=== PATIENT | male | born 1950 | race Caucasian/White ===

== ENCOUNTER 2021-04-06 11:08 | Outpatient (REF) | payer MEDICARE, SELFPAY ==
[2021-04-06 13:23] LABS: MANUAL DIFF FLAG NO
[2021-04-06 13:28] LABS: Basophils Absolute Auto 0.1 X10*3/uL (0.0-0.2); Eosinophils Absolute Auto 0.1 X10*3/uL (0.0-0.4); Eosinophils Percent Auto 2.5 % (0-4); Hematocrit 42.9 % (42-52); Hemoglobin 14.2 g/dl (14.0-18.0); Imm Gran Abs Auto 0.01 X10*3/uL (0.00-0.03); Imm Gran Pct Auto 0.2 % (0.0-0.4); Lymphocytes Absolute Auto 1.2 X10*3/uL (1.2-4.9); Lymphocytes Percent Auto 22.6 % (20-40); Mean Corpuscular HGB Conc 33.1 g/dl (31.0-36.0); Mean Corpuscular Hemoglobin 34.1 pg (27.0-33.0); Mean Corpuscular Volume 103.1 fL (80-98); Mean Platelet Volume 9.5 fL (9.4-12.4); Monocytes Absolute Auto 0.4 X10*3/uL (0.1-1.2); Monocytes Percent Auto 7.7 % (2-11); Neutrophils Absolute Auto 3.4 X10*3/uL (2.0-8.3); Platelet Count 250 X10*3/uL (160-400); Red Blood Count 4.16 X10*6/uL (4.60-5.80); Red Cell Distribution Width 12.8 % (11.0-16.0); White Blood Count 5.2 X10*3/uL (4.8-10.8)
[2021-04-06 13:55] LABS: Carbon Dioxide 27 mmol/L (22-29); Chloride 106 mmol/L (96-108); Potassium 4.4 mmol/L (3.3-5.1); Sodium 141 mmol/L (135-145)
[2021-04-06 13:56] LABS: Alanine Aminotransferase 52 U/L (0-40); Albumin Level 4.3 g/dL (3.5-5.0); Alkaline Phosphatase 68 U/L (39-117); Anion Gap 12 (12-20); Aspartate Amino Transferase 34 U/L (5-37); Blood Urea Nitrogen 23 mg/dL (9-16); Calcium 9.2 mg/dL (8.4-10.2); Cholesterol 186 mg/dL; Estimated Glomerular Filt Rate > 60; Glucose Random 82 mg/dL (60-115); HDL Cholesterol 69 mg/dL; LDL Cholesterol Calculated 105 mg/dl; Total Protein 6.5 g/dL (6.5-8.0); Triglycerides 63 mg/dL
[2021-04-06 14:17] LABS: Prostate Specific Antigen Scr 1.92 ng/mL (<0.05-4.0); TSH reflex Free T4 0.97 uIU/mL (0.32-4.0)
[2021-04-06 14:39] LABS: Erythrocyte Sedimentation Rate 3 MM/HR (0-15)
[2021-04-06 18:27] LABS: Glucose Urine UA NEG (NEG); Leukocyte Esterase Urine NEG (NEG); Nitrite Urine NEG (NEG); PH 5.5 (5.0-8.0); Specific Gravity - Urine 1.015 (1.005-1.025); Urine Blood NEG (NEG); Urine Ketones NEG (NEG); Urine Protein NEG (NEG-TRACE)
[2021-04-06 18:28] LABS: Appearance Urine CLEAR; Color Urine YELLOW
[2021-04-07 21:46] LABS: CRP High Sensitivity 0.8 mg/L
== END 2021-04-06 11:09 | disposition home or self-care (01) ==
LOC: HO.WFDLDS 11:08
PROVIDERS: Visit Provider Family Medicine
DX: Z00.00 Encounter for general adult medical examination without abnormal findings (principal); Z12.5 Encounter for screening for malignant neoplasm of prostate; M54.5 Low back pain
CPT/HCPCS: 36415; 80053; 80061; 81003; 84153; 84443; 85025; 85652; 86141

== ENCOUNTER 2021-04-08 13:33 | Outpatient (REF) | payer MEDICARE, SELFPAY ==
--- NOTE | ~2021-04-08 | XR_ITS ---
EXAMINATION: XR LUMBOSACRAL SPINE CLINICAL INFORMATION: Low back pain COMPARISON: None TECHNIQUE: Three views of the lumbosacral spine. FINDINGS: Bone alignment is normal. No fracture or dislocation is seen. There is degenerative disc disease at L1-L2. There is lower lumbar spine facet arthritis. There is evidence of atherosclerotic disease. There is question of a dilatation of the distal abdominal aorta measuring 3.3 cm in AP dimension not accounting for magnification. XR/XR lumbar spine 2-3V IMPRESSION: Degenerative disc disease at L1-L2 and lower lumbar spine facet arthritis. Atherosclerotic disease and question mild dilatation of the distal abdominal aorta. This could be better evaluated with ultrasound.
== END 2021-04-08 13:34 | disposition home or self-care (01) ==
LOC: HO.XRAY 13:33
PROVIDERS: PCP Family Medicine; Visit Provider Family Medicine
DX: M54.5 Low back pain (principal)
CPT/HCPCS: 72100

== ENCOUNTER 2021-04-29 11:18 | Outpatient (REF) | payer MEDICARE, SELFPAY ==
--- NOTE | ~2021-04-29 | US_ITS ---
EXAMINATION: US RETROPERITONEAL LIMITED (AORTA) CLINICAL INFORMATION: Encountered for screening for cardiovascular disorder. COMPARISON: None TECHNIQUE: Ramirez-scale, color Doppler and spectral Doppler evaluation of the abdominal aorta. FINDINGS: There is atherosclerotic disease. The measurements of the aorta in maximum AP and transverse dimensions respectively are as follows: Proximal: 2.7 x 3.3 cm. Mid: 2.3 x 2.3 cm. Distal: 3.6 x 3.6 cm. PSV: 78 cm/sec The measurements of the common iliac arteries in maximum dimensions are as follows: Right: AP: 1.4 cm. TRV: 1.6 cm. Left: AP: 1.4 cm. TRV: 1.3 cm. US/US abdominal aortic aneurysm IMPRESSION: There is a 3.6 x 3.6 cm infrarenal abdominal aortic aneurysm. Recommend CTA or MRA of the abdomen and pelvis for further evaluation.
== END 2021-04-29 11:19 | disposition home or self-care (01) ==
LOC: HO.US 11:18
PROVIDERS: PCP Family Medicine; Visit Provider Family Medicine
DX: Z13.6 Encounter for screening for cardiovascular disorders (principal)
CPT/HCPCS: 76706

== ENCOUNTER 2021-08-06 11:34 | Outpatient (REF) | payer MEDICARE, SELFPAY ==
--- NOTE | ~2021-08-06 | XR_ITS ---
EXAMINATION: LUMBAR SPINE AND LEFT HIP X-RAYS CLINICAL INFORMATION: Left hip pain. Back pain and lumbar radiculopathy. COMPARISON: None TECHNIQUE: 2 views of the left hip and 3 views of the lumbar spine FINDINGS: Left hip: Bone alignment is normal. No fracture or dislocation is seen. Joint spaces normal. Soft tissues are normal. Lumbar spine: Bone alignment is normal. No fracture or dislocation is seen. There is degenerative disc disease at L1-L2. Disc spaces are otherwise normal. There is lower lumbar spine facet arthritis. XR/XR hip LT min 2V IMPRESSION: Left hip: Unremarkable exam Lumbar spine: Degenerative disc disease at L1-L2 and lower lumbar spine facet arthritis.
--- NOTE | ~2021-08-06 | XR_ITS ---
EXAMINATION: LUMBAR SPINE AND LEFT HIP X-RAYS CLINICAL INFORMATION: Left hip pain. Back pain and lumbar radiculopathy. COMPARISON: None TECHNIQUE: 2 views of the left hip and 3 views of the lumbar spine FINDINGS: Left hip: Bone alignment is normal. No fracture or dislocation is seen. Joint spaces normal. Soft tissues are normal. Lumbar spine: Bone alignment is normal. No fracture or dislocation is seen. There is degenerative disc disease at L1-L2. Disc spaces are otherwise normal. There is lower lumbar spine facet arthritis. XR/XR lumbar spine 2-3V IMPRESSION: Left hip: Unremarkable exam Lumbar spine: Degenerative disc disease at L1-L2 and lower lumbar spine facet arthritis.
== END 2021-08-06 11:35 | disposition home or self-care (01) ==
LOC: HO.XRAY 11:34
PROVIDERS: PCP Family Medicine; Visit Provider Family Medicine
DX: M25.552 Pain in left hip (principal); M54.16 Radiculopathy, lumbar region
CPT/HCPCS: 72100; 73502

== ENCOUNTER 2021-09-07 11:03 | Outpatient (REF) | payer MEDICARE, SELFPAY | END 2021-09-07 11:04 | disposition home or self-care (01) | LOC: HO.MRI 11:03 | PROVIDERS: Visit Provider Family Medicine | DX: Z13.89 Encounter for screening for other disorder (principal) ==

== ENCOUNTER 2021-09-11 12:47 | Outpatient (REF) | payer MEDICARE, SELFPAY ==
--- NOTE | ~2021-09-11 | MR_ITS ---
EXAMINATION: MR LUMBAR SPINE WITHOUT CONTRAST CLINICAL INFORMATION: Lower back pain. Left leg pain, numbness, weakness, toe numbness. COMPARISON: Lumbar spine radiographs dated 08/06/2021. TECHNIQUE: MRI of the lumbar spine was obtained using routine sequences without contrast. FINDINGS: VERTEBRAL BODIES AND PARASPINAL STRUCTURES: The lumbar lordosis is maintained. Minimal grade 1 retrolisthesis of L1 on L2 measuring 0.2 cm. No acute fracture. No loss of vertebral body height. Prominent loss of intervertebral disc height with disc desiccation and severe Modic type I degenerative endplate changes at L1-L2. More mild loss of intervertebral disc height with distal dictation at L5-S1. No additional abnormal marrow signal. The visualized paraspinal soft tissues are unremarkable. CONUS MEDULLARIS AND CAUDA EQUINA: Normal, terminating at the level of L1. SPINAL LEVELS: T12-L1: No significant disc bulge. No central canal or neural foraminal stenosis. L1-L2: Broad-based disc bulge with posterior annular fissuring. Shallow bilateral extraforaminal disc protrusions, right greater than left, which contacts the exiting bilateral L1 nerve roots. Moderate bilateral neural foraminal stenosis. L2-L3: Minimal disc bulge with bilateral facet arthropathy and minimal bilateral neural foraminal stenosis. L3-L4: Minimal broad-based disc bulge with bilateral facet arthropathy causing mild bilateral neural foraminal stenosis. L4-L5: Broad-based disc bulge with a superimposed left lateral recess/subarticular disc protrusion which demonstrates cranial migration measuring 1.2 cm. This contacts and displaces the exiting left L4 nerve root. Bilateral facet arthropathy with moderate bilateral neural foraminal stenosis. L5-S1: Mild broad-based disc bulge with a posterior central disc protrusion and annular fissuring. Bilateral facet arthropathy. MR/MR lumbar spine wo con IMPRESSION: 1. Broad-based disc bulge at L4-L5 with a superimposed left lateral recess/subarticular disc protrusion which demonstrates cranial migration as well as contacts and displaces the exiting left L4 nerve root. Bilateral facet arthropathy with moderate bilateral neural foraminal stenosis. 2. Severe degenerative disc disease at L1-L2 with a broad-based disc bulge and posterior annular fissuring as well as shallow bilateral extraforaminal disc protrusions, right greater than left. These contact the exiting bilateral L1 nerve roots. Moderate bilateral neural foraminal stenosis. 3. Broad-based disc bulge at L5-S1 with a shallow posterior central disc protrusion and annular fissuring. Bilateral facet arthropathy without significant neural foraminal stenosis.
== END 2021-09-11 12:48 | disposition home or self-care (01) ==
LOC: HO.MRI 12:47
PROVIDERS: Visit Provider Family Medicine
DX: M54.16 Radiculopathy, lumbar region (principal)
CPT/HCPCS: 72148

== ENCOUNTER 2021-09-25 12:20 | Observation (INO) | payer MEDICARE, SELFPAY ==
[2021-09-25] VITALS (8 sets, daily range): BP systolic 104–148; BP diastolic 64–95; PULSE 54–75; RESP 12–17; TEMP 36.6; O2SAT 93–97; BMI 21.9
--- NOTE | ~2021-09-25 | CT_ITS ---
EXAMINATION: CT HEAD WITHOUT CONTRAST CLINICAL INFORMATION: Syncope. Seizure. COMPARISON: None TECHNIQUE: Contiguous axial imaging was performed from the skull base to vertex without intravenous administration of contrast. This CT examination was performed using dose optimization techniques as appropriate, variously including the following: *Automated exposure control *Adjustment of mA and/or kV according to patient size (this includes techniques or standardized protocols for targeted exams where dose is matched to indication/reason for exam; i.e. extremities or head) *Use of iterative reconstruction technique DLP: 663 mGy-cm FINDINGS: There is no evidence of acute intracranial hemorrhage or territorial infarction. No abnormal mass effect or midline shift is seen. Ramirez to white matter differentiation is well preserved. No extra-axial fluid collections are identified. The ventricles are normal in size. There is no abnormal attenuation within the brain parenchyma. The osseous structures and soft tissues are normal. The mastoid air cells and visualized portions of the paranasal sinuses are well aerated. CT/CT head/brain wo con IMPRESSION: Unremarkable exam.
--- NOTE | 2021-09-25 15:22 | ED_ITS ---
HPI - Syncope General Chief Complaint: Seizure Stated Complaint: ? seizure Time Seen by Provider: 09/25/21 15:20 Source: patient Mode of arrival: ambulatory Limitations: no limitations History of Present Illness HPI narrative: Patient has episodes of dizzy spells that last 30 seconds for the past few months. Today sitting in the recliner did not feel well had some abdominal pain, called his . She came in and witnessed him to be unresponsive for a minute with both arms rigid flexed in. The patient was awake within a minute. Patient being followed for AAA MD complaint: loss of consciousness Onset (ago): hour(s) (4.5 hours.) Prodromal symptoms: other (abdominal pain) Witnessed: Yes - by Bystander Context: at rest Injuries sustained associated with event: none Current symptoms: none Treatments prior to arrival: none Related Data Home Medications Medication Instructions Recorded Confirmed omeprazole 20 mg capsule,delayed 20 mg PO BID 04/06/21 release Previous Rx's Medication Instructions Recorded sildenafil 50 mg tablet 50 mg PO DAILY PRN #4 tab 03/19/21 prednisone 20 mg tablet 40 mg PO DAILY 5 Days #10 tab 08/06/21 lidocaine HCl 1 % topical gel 1 ea TOPICAL BID-TID PRN 30 Days 08/25/21 #226 g Allergies Allergy/AdvReac Type Severity Reaction Status Date / Time No Known Allergies Allergy Verified 08/25/21 12:39 Review of Systems Constitutional: Constitutional: Reports no additional constitutional complaints Eyes: Eyes: Reports no additional eye complaints ENT: Denies dizziness Cardiovascular: Cardiovascular: Reports no additional cardiovascular complaints Respiratory: Respiratory: Reports as per HPI Gastrointestinal: Gastrointestinal: Reports no additional gastrointestinal complaints Musculoskeletal: Musculoskeletal: Reports no additional musculoskeletal complaints Integumentary/Breasts: Skin/Breast: Denies rash Neurologic: Reports system reviewed and no additional complaints, except as documented, Denies dizziness and Denies Sensory deficit (Neuro) Psychiatric: Psychiatric: Denies anxiety [facility] Family History Family History Mother No problems noted. Father No problems noted. Social History Social History (Updated 05/07/21 @ 15:07 by [employer]) Alcohol intake: never Patient Tobacco Use Status: Never used Tobacco Advance Directives: No Advance Directives Information Provided: No Physical Exam Vital Signs: Vital Signs: Last Vital Signs Temp 97.8 F 09/25/21 15:38 Pulse 55 09/25/21 15:38 Resp 12 09/25/21 15:38 BP 148/95 H 09/25/21 15:38 Pulse Ox 93 09/25/21 15:38 Body Mass Index 21.9 Neuro: Sensory Exam: No Sensory deficit (Neuro) Course Reevaluation(s) Reevaluation #1: patient with a syncopal event and new atrial fibrillation will admit for monitoring, head CT negative. Time: 17:08 MDM - Syncope Lab Data Result diagrams: 09/25/21 16:10 09/25/21 16:10 Labs: Lab Results 09/25/21 09/25/21 Range/Units 16:10 16:10 WBC 9.2 (4.8-10.8) X10*3/uL RBC 4.94 (4.60-5.80) X10*6/uL Hgb 16.9 (14.0-18.0) g/dl Hct 49.5 (42-52) % MCV 100.2 H (80-98) fL MCH 34.2 H (27.0-33.0) pg MCHC 34.1 (31.0-36.0) g/dl RDW 12.7 (11.0-16.0) % Plt Count 274 (160-400) X10*3/uL MPV 9.1 L (9.4-12.4) fL Immature Gran % (Auto) 0.3 (0.0-0.4) % Neut % (Auto) 80.7 H (45-73) % Lymph % (Auto) 12.7 L (20-40) % [place] % (Auto) 5.5 (2-11) % Eos % (Auto) 0.3 (0-4) % Baso % (Auto) 0.5 (0-2) % Lymph # (Auto) 1.2 (1.2-4.9) X10*3/uL [place] # (Auto) 0.5 (0.1-1.2) X10*3/uL Eos # (Auto) 0.0 (0.0-0.4) X10*3/uL Baso # (Auto) 0.1 (0.0-0.2) X10*3/uL Abs Immat Gran (auto) 0.03 (0.00-0.03) X10*3/uL Absolute Neuts (auto) 7.4 (2.0-8.3) X10*3/uL Absolute Nucleated RBC 0.000 (0.0-0.012) X10*3/uL Nucleated RBC % (auto) 0.0 (0.0-0.2) /100WBC Troponin I High Sens 6.3 (<3.5-35.0) ng/L Imaging Data CT scan - head: Radiologist's impression: FINDINGS: There is no evidence of acute intracranial hemorrhage or territorial infarction. No abnormal mass effect or midline shift is seen. Ramirez to white matter differentiation is well preserved. No extra-axial fluid collections are identified. The ventricles are normal in size. There is no abnormal attenuation within the brain parenchyma. The osseous structures and soft tissues are normal. The mastoid air cells and visualized portions of the paranasal sinuses are well aerated. ? CT/CT head/brain wo con IMPRESSION: Unremarkable exam. ECG Data Attestation: I personally reviewed and interpreted this ECG as follows: Interpretation: Atrial fibrillation rate of 60, no st or twave changes Discharge Plan Discharge Clinical Impression: Syncope and collapse Atrial fibrillation Qualifiers: Atrial fibrillation type: unspecified Qualified Code(s): I48.91 - Unspecified atrial fibrillation Patient Disposition: Admitted As Inpatient
--- NOTE | 2021-09-25 15:27 | ECG_ITS ---
Test Reason : AMS Blood Pressure : / mmHG Vent. Rate : 059 BPM Atrial Rate : 000 BPM P-R Int : 000 ms QRS Dur : 082 ms QT Int : 394 ms P-R-T Axes : 000 -27 -18 degrees QTc Int : 390 ms Atrial fibrillation with slow ventricular response RSR' or QR pattern in V1 suggests right ventricular conduction delay Nonspecific T wave abnormality Inferior leads Abnormal ECG No previous ECGs available Referred By: Daniel Joshi Electronically Signed By:MUKUND ESPINO MD
[2021-09-25 16:17] LABS: MANUAL DIFF FLAG NO
[2021-09-25 16:20] LABS: Basophils Absolute Auto 0.1 X10*3/uL (0.0-0.2); Basophils Percent Auto 0.5 % (0-2); Eosinophils Percent Auto 0.3 % (0-4); Hematocrit 49.5 % (42-52); Hemoglobin 16.9 g/dl (14.0-18.0); Imm Gran Abs Auto 0.03 X10*3/uL (0.00-0.03); Imm Gran Pct Auto 0.3 % (0.0-0.4); Lymphocytes Absolute Auto 1.2 X10*3/uL (1.2-4.9); Lymphocytes Percent Auto 12.7 % (20-40); Mean Corpuscular HGB Conc 34.1 g/dl (31.0-36.0); Mean Corpuscular Hemoglobin 34.2 pg (27.0-33.0); Mean Corpuscular Volume 100.2 fL (80-98); Mean Platelet Volume 9.1 fL (9.4-12.4); Monocytes Absolute Auto 0.5 X10*3/uL (0.1-1.2); Monocytes Percent Auto 5.5 % (2-11); Neutrophils Absolute Auto 7.4 X10*3/uL (2.0-8.3); Neutrophils Percent Auto 80.7 % (45-73); Platelet Count 274 X10*3/uL (160-400); Red Blood Count 4.94 X10*6/uL (4.60-5.80); Red Cell Distribution Width 12.7 % (11.0-16.0); White Blood Count 9.2 X10*3/uL (4.8-10.8)
[2021-09-25 16:45] LABS: Troponin-I High Sensitivity 6.3 ng/L (<3.5-35.0)
--- NOTE | 2021-09-25 17:32 | PM.IMHP ---
History of Present Illness Date of Service: 09/25/21 Chief Complaint: syncope 71M Presented with syncope. Patient was feeling well on a.m. of admission. He states he had a big meal for lunch and then started feeling funny feeling in his stomach, crampy, like something was off , Lightheaded and sweaty. He cultures and then moved to the dining room table. When his came came he was passed out, upper extremities were contracted, mildly tremulous, this lasted for about 1 minute. He did not have any incontinence, no tongue biting, when he awoke he remember the event and fell mostly back to normal except for being tired. Denies any chest pain, shortness of breath, fever, chills. Denies any similar symptoms previously. In ED was found to have new diagnosis of atrial fibrillation on EKG with slow ventricular response in the 50s. Review of Systems Review of Systems: Constitutional: Denies fever, denies Chills Eyes: denies blurry vision ENT: denies sore throat CVS: denies chest pain Respiratory: Denies dyspnea GI: no abdominal pain : denies dysuria MSK: denies neck pain Skin: denies rash Neuro: denies specific motor weakness Psych: denies suicidal ideation Endocrine: denies heat/cold intolerance Hematologic: denies easy bleeding Allergy: denies hives [facility] Medical History AAA (abdominal aortic aneurysm) Aortic aneurysm Elevated transaminase level Lumbar radiculitis Family History Mother No problems noted. Father No problems noted. Pertinent family history: both parents had cad Social History Alcohol intake: never Patient Tobacco Use Status: Never used Tobacco Advance Directives: No Advance Directives Information Provided: No Meds Allergies Allergy/AdvReac Type Severity Reaction Status Date / Time No Known Allergies Allergy Verified 08/25/21 12:39 Active Medications: Current Medications Pharmacy Consult (Consult Rx Perform Med Rec) 1 each MISCELLANE ONCE PRN PRN Reason: Consult order Home Medications Medication Instructions Recorded Confirmed Last Taken Type omeprazole 20 mg capsule,delayed 20 mg PO BID 04/06/21 Unknown History release Physical Exam Vital Signs and Narrative: Vital Signs: Last Vital Signs Temp 97.8 F 09/25/21 15:38 Pulse 55 09/25/21 15:38 Resp 12 09/25/21 15:38 BP 148/95 H 09/25/21 15:38 Pulse Ox 93 09/25/21 15:38 Body Mass Index 21.9 General: no acute distress HEENT: atraumatic Neck: normal to visual inspection CVS: S1, S2, slow, irregular Resp: CTA bilateral Chest: non tender GI: soft, non tender, non distended : no CVA tenderness Skin: no rashes Extremities: no edema Neuro: Oriented X3, grossly intact Psych: cooperative Results Labs CBC and Chem 7: 09/25/21 16:10 09/25/21 16:10 Labs: Laboratory Results - last 24 hr 09/25/21 09/25/21 16:10 16:10 MCV 100.2 H MCH 34.2 H MCHC 34.1 RDW 12.7 Plt Count 274 MPV 9.1 L Immature Gran % (Auto) 0.3 Neut % (Auto) 80.7 H Lymph % (Auto) 12.7 L [place] % (Auto) 5.5 Eos % (Auto) 0.3 Baso % (Auto) 0.5 Lymph # (Auto) 1.2 [place] # (Auto) 0.5 Eos # (Auto) 0.0 Baso # (Auto) 0.1 Abs Immat Gran (auto) 0.03 Absolute Neuts (auto) 7.4 Absolute Nucleated RBC 0.000 Nucleated RBC % (auto) 0.0 Troponin I High Sens 6.3 Imaging Radiologist's Impressions: Impressions Head CT 09/25/21 15:28 IMPRESSION: Unremarkable exam. Assessment and Plan (1) Syncope and collapse: Status: Acute (2) Atrial fibrillation: Qualifiers: Atrial fibrillation type: unspecified Qualified Code(s): I48.91 - Unspecified atrial fibrillation Status: Acute 71M presented with syncope, found to have afib syncope orthostatics, tele, echo likely vasovagal new afib with svr cardio eval Quality Stroke Does the patient have a stroke diagnosis?: No VTE Prior VTE?: No VTE Risk Level:: Medical - moderate - high VTE Device Contraindication: Treatment Not Indicated VTE Drug Contraindication: N/A - Med Ordered
--- NOTE | 2021-09-25 17:59 | PHA.MEDREC ---
Pharmacy Consult ? Medication Reconciliation Pharmacy has completed the medication reconciliation. Delmis DonovanD
[2021-09-25] MEDS: Enoxaparin Sodium 40 MG/0.4 ML SYRINGE SUBCUT (18:00)
[2021-09-25 18:18] LABS: COVID-19 Test Negative (Negative)
[2021-09-25 18:20] LABS: Anion Gap 14 (12-20); Blood Urea Nitrogen 16 mg/dL (9-16); Calcium 9.8 mg/dL (8.4-10.2); Carbon Dioxide 27 mmol/L (22-29); Chloride 103 mmol/L (96-108); Creatinine Clr Calc Pharmacy 67.6; Estimated Glomerular Filt Rate > 60; Glucose Random 118 mg/dL (60-115); Potassium 4.1 mmol/L (3.3-5.1); Sodium 140 mmol/L (135-145)
--- NOTE | 2021-09-25 18:35 | PC.NURSE ---
The pt is resting in bed awaiting inpatient bed assignment. Bedside monitor reveals Afib, rate 60's. The pt denies chest pain. Respirations spontaneous and non-labored, speech clear and appropriate. He is taking PO food and fluids without difficulty. Speech clear and appropriate. Will continue to monitor.
[2021-09-25 18:41] LABS: TSH reflex Free T4 0.91 uIU/mL (0.32-4.0)
[2021-09-25 19:00] LABS: Folate 18.7 ng/mL (> or = 4.0); Vitamin B12 912 pg/mL (200-900)
[2021-09-26] VITALS (8 sets, daily range): BP systolic 100–125; BP diastolic 65–85; PULSE 66–84; RESP 12–18; TEMP 36.6–37.2; O2SAT 96–98
[2021-09-26] MEDS: Melatonin 3 MG TABLET 6 MG PO (00:38)
[2021-09-26] MEDS: Acetaminophen 325 MG TABLET 650 MG PO (04:48)
[2021-09-26] MEDS: Omeprazole 20 MG CAPSULE.DR PO (06:17)
[2021-09-26] MEDS: 0.9 % Sodium Chloride Flush 3 ML SYRINGE IVFLUSH (08:12)
[2021-09-26] MEDS: Multivitamin TABLET 1 TAB PO (08:12)
--- NOTE | 2021-09-26 08:23 | PC.NURSE ---
Pt seen and evaluated by this RN this AM. Pt a+o x 3, lungs clear throughout, BS active, pt reports last BM yesterday, no issues with urination. No c/o pain at this time. Awaiting bed assignment.
--- NOTE | 2021-09-26 11:27 | PM.CNCAR ---
History of Present Illness History of Present Illness Date of Service: 09/26/21 Requesting physician: Ronaldo Fletcher Chief complaint: new afib, syncope Narrative: 71-year-old gentleman who is presenting with syncope. He has background history of abdominal aortic aneurysm but no other medical history. He is a former smoker. He said he was sitting down eating breakfast when he started feeling dizzy and nauseous. He called his and apparently passed out for 30 seconds. The notices arms to be twitching and was concern for seizures. He has never had seizures before. Denies any history of syncope in particular vasovagal syncope in the past. Since then he has been doing well. Emergency department he was noted to be in slow atrial fibrillation which is a new diagnosis for him. He is denying palpitations. No shortness of breath or chest discomfort. Clinically no symptoms or signs of heart failure. [facility] Past Medical History Medical History AAA (abdominal aortic aneurysm) Aortic aneurysm Elevated transaminase level Lumbar radiculitis Family History Family History Mother No problems noted. Father No problems noted. Social History Social History Alcohol intake: current Patient Tobacco Use Status: Never used Tobacco Use of substances other than those prescribed or required for medical reasons: No Advance Directives: No Advance Directives Information Provided: No Meds Allergies Allergy/AdvReac Type Severity Reaction Status Date / Time No Known Allergies Allergy Verified 08/25/21 12:39 Active Medications: Current Medications Docusate Sodium (Docusate Sodium 100 Mg Capsule) 100 mg PO DAILY PRN PRN Reason: Constipation Enoxaparin Sodium (Enoxaparin Sodium 40 Mg/0.4 Ml Syringe) 40 mg SUBCUT Q24H ALFRED Last Admin: 09/25/21 18:00 Dose: 40 mg Documented by: Melatonin (Melatonin 3 Mg Tablet) 6 mg PO BEDTIME PRN PRN Reason: Insomnia Last Admin: 09/26/21 00:38 Dose: 6 mg Documented by: Multivitamins/Vitamin C (Multivitamin Tablet) 1 tab PO DAILY ALFRED Last Admin: 09/26/21 08:12 Dose: 1 tab Documented by: Omeprazole (Omeprazole 20 Mg Capsule.) 20 mg PO DAILY@0630 [facility] Last Admin: 09/26/21 06:17 Dose: 20 mg Documented by: Ondansetron HCl (Ondansetron Hcl 4 Mg/2 Ml Vial) 4 mg IVPUSH Q8H PRN PRN Reason: Nausea and Vomiting Pharmacy Consult (Consult Rx Perform Med Rec) 1 each MISCELLANE ONCE PRN PRN Reason: Consult order Sodium Chloride (0.9 % Sodium Chloride Flush 3 Ml Syringe) 3 ml IVFLUSH QSHIFT [facility] Last Admin: 09/26/21 08:12 Dose: 3 ml Documented by: Home Medications Medication Instructions Recorded Confirmed Last Taken Type omeprazole 20 mg capsule,delayed 20 mg PO DAILY@0630 04/06/21 09/25/21 09/25/21 History release multivitamin 1 tab PO DAILY 09/25/21 09/25/21 Unknown History Physical Exam Vital Signs: Vital Signs: Last Vital Signs Temp 99.0 F 09/26/21 07:37 Pulse 78 09/26/21 07:37 Resp 14 09/26/21 07:37 BP 110/65 09/26/21 07:37 Pulse Ox 96 09/26/21 07:37 Body Mass Index 21.9 GENERAL APPEARANCE: in no acute distress, pleasant. NECK: no carotid bruit, no jugular venous distention. SKIN: no suspicious lesions, warm and dry. HEART: no murmurs, irregular rate and rhythm. LUNGS: clear to auscultation bilaterally. ABDOMEN: soft, nontender. EXTREMITIES: no edema. PERIPHERAL PULSES: equal. NEUROLOGIC: No gross deficits, AAO X 3 Results Labs and Meds Result diagrams: 09/25/21 16:10 09/25/21 17:57 Lab results: Laboratory Results - last 24 hr 09/25/21 09/25/21 09/25/21 16:10 16:10 17:51 WBC 9.2 RBC 4.94 Hgb 16.9 Hct 49.5 MCV 100.2 H MCH 34.2 H MCHC 34.1 RDW 12.7 Plt Count 274 MPV 9.1 L Immature Gran % (Auto) 0.3 Neut % (Auto) 80.7 H Lymph % (Auto) 12.7 L [place] % (Auto) 5.5 Eos % (Auto) 0.3 Baso % (Auto) 0.5 Lymph # (Auto) 1.2 [place] # (Auto) 0.5 Eos # (Auto) 0.0 Baso # (Auto) 0.1 Abs Immat Gran (auto) 0.03 Absolute Neuts (auto) 7.4 Absolute Nucleated RBC 0.000 Nucleated RBC % (auto) 0.0 Sodium Potassium Chloride Carbon Dioxide Anion Gap BUN Creatinine Estim Creat Clear Calc Estimated GFR Random Glucose Calcium Troponin I High Sens 6.3 Vitamin B12 Folate TSH COVID-19 (DARREN) Negative COVID-19 Clin Com See Note 09/25/21 09/25/21 17:57 Unknown WBC RBC Hgb Hct MCV MCH MCHC RDW Plt Count MPV Immature Gran % (Auto) Neut % (Auto) Lymph % (Auto) [place] % (Auto) Eos % (Auto) Baso % (Auto) Lymph # (Auto) [place] # (Auto) Eos # (Auto) Baso # (Auto) Abs Immat Gran (auto) Absolute Neuts (auto) Absolute Nucleated RBC Nucleated RBC % (auto) Sodium 140 Potassium 4.1 Chloride 103 Carbon Dioxide 27 Anion Gap 14 BUN 16 Creatinine 0.90 Estim Creat Clear Calc 67.6 Estimated GFR > 60 Random Glucose 118 H D Calcium 9.8 D Troponin I High Sens Vitamin B12 912 H Folate 18.7 TSH 0.91 COVID-19 (DARREN) COVID-19 Clin Com Imaging Radiologist's impression: Impressions Head CT 09/25/21 15:28 IMPRESSION: Unremarkable exam. Assessment and Plan (1) Syncope and collapse: Status: Acute (2) Atrial fibrillation: Qualifiers: Atrial fibrillation type: unspecified Qualified Code(s): I48.91 - Unspecified atrial fibrillation Status: Acute 71-year-old gentleman who is presenting with syncope. The story sound like vasovagal syncope. We will do echocardiography to rule out any structural issues in particular cardiomyopathy or RV dysfunction. He has new onset atrial fibrillation. AFib is not the cause for his syncope at this point. He has vascular disease and given age more than 65 I think we should start him on anticoagulation. I have discussed that with him and he is agreeable. AFib is rate controlled at this point. Does not need any beta-blockers or AV catracho blockers right now. We will arrange a 3 day Holter monitor on him to make sure he does not have any significant bradycardia which can be another reason for his syncopal episode. If echocardiography is normal and he walks around without any symptoms and I think potentially can be discharged home and get further workup as outpatient. Thank you for allowing me to participate in the care of your patient. Please feel free to contact me if you have any questions. Procedures Date of Service Date of Service: 09/26/21
--- NOTE | 2021-09-26 13:00 | CA_ITS ---
Transthoracic Echocardiogram Patient (Last, First, Middle): Ezra Roberts, Gender: Male Date of : 1950 Age: 71 Procedure Date: 09/26/2021 Procedure Type: Transthoracic Echocardiogram Location: ER Height: 170.18 cm Weight: 63.5 kg BSA: 1.74 m2 Heart Rate: bpm BP: 115 / 69 mmHg Floor Covering Layer: Referring MD: Miriam CAMPBELL Symptoms: new afib, syncope Study Quality: Fair ECG Rhythm: Atrial Fibrillation Conclusions: - Normal left ventricular size, thickness, and systolic function. - Mildly increased right ventricular cavity size. There is normal right ventricular systolic function. - No significant valvular or pericardial disease. Findings Left Ventricle Normal left ventricular size, thickness, and systolic function. The visually estimated ejection fraction is between 50-55%. There is no evidence of regional wall motion abnormalities. Diastolic function is indeterminate on the basis of available data. Right Ventricle Mildly increased right ventricular cavity size. There is normal right ventricular systolic function. Atria The left atrium is normal in size. Aortic Valve Normal aortic valve structure and function. There is no aortic valve stenosis. There is no aortic valve regurgitation. Mitral Valve Normal mitral valve structure and function. There is no mitral valve regurgitation. There is no mitral valve stenosis. Pulmonic Valve Normal pulmonic valve structure and function. There is no pulmonic valve regurgitation. Tricuspid Valve Normal tricuspid valve structure. There is trace tricuspid valve regurgitation. Normal right atrial pressure. There is no evidence of pulmonary hypertension. Great Vessels All visible segments of the aorta are normal in size. The visualized portions of the pulmonary artery and branches are normal. Venous The inferior vena cava is normal in size and collapses greater than 50% with inspiration. Pericardium/Pleural There is no evidence of pericardial effusion. Prior Study Comparison No prior study available for comparison. Measurements 2D Linear Measurements IVSd: 1.06 0.6-0.9/0.6-1.0 cm LVIDd: 4.45 3.9-5.3/4.2-5.9 cm LVIDd Index: 2.56 2.4-3.2/2.2-3.1 cm/m2 LVIDs: 3.00 2.0-3.6 cm LVPWd: 1.08 0.7-1.1 cm Ao Root: 3.00 2.1-3.5 cm LA Diam: 3.40 2.7-3.8/3.0-4.0 cm LAIDs Index: 1.95 1.5-2.3 cm/m2 LV Mass: 205.99 67-162/88-224 g LV Mass Index: 118.39 43-95/49-115 g/m2 LVOT Diam: 2.00 3.0+(-)1.3 cm Mitral Valve MV Pk E: 0.81 MV Decel Time: 232.00 E'Lateral: 19.00 E'Medial: 9.90 E/E' Med: 8.20 E/E' Lat: 4.30 PHT: 68.00 MVA PHT: 3.24 Decel [place]: 3.49 Aortic Valve AoV Pk Ap: 1.28 AoV Mn Ap: 0.82 AoV VTI: 0.27 AoV Pk Grad: 7.00 Aov Mn Grad: 3.00 JUSTICE Cont.VTI: 2.00 LVOT LVOT Pk Ap: 0.91 LVOT Mn Ap: 0.56 LVOT VTI: 0.17 LVOT Pk Grad: 3.00 LVOT Mn Grad: 2.00 LVOT Diam: 2.00 LVOT Area: 3.14 Diastolic Function MV Pk E: 0.81 E'Medial: 9.90 E/E' Med: 8.20 E' Laterial: 19.00 E/E' Lat: 4.30 Tricuspid Valve TR Pk Ap: 2.34 TR Pk Grad: 22.00 RVSP: 25.00 Great Vessels Aorta Ao Root-2D: 3.00 2.0-3.7 cm Ao Asc: 3.30 2.1-3.4 cm Pulmonary Valve PV Pk Ap: 1.19 Peak PV Grad: 6.00 Updated in Other Vendor System with Status of Final Burt Carreon MD electronically signed on 09/26/2021 2:14:33 PM with status of Final
[2021-09-26 14:57] LABS: D Dimer < 200 NG/ML
--- NOTE | 2021-09-26 15:07 | PM.DS ---
DS: Providers Provider Date of Service: 09/26/21 Date of admission: 09/25/21 17:30 Primary care physician: Bjorn Arauz MD Consults: 09/25/21 17:30 Consult to Cardiology Routine Consulting Provider: Burt Carreon Reason for consultation: new afib, syncope Has provider been notified: No DS: Diagnosis Discharge Diagnosis (1) Syncope and collapse: Status: Acute (2) Atrial fibrillation: Status: Acute DS: Summary Hospital Course Hospital Course: Patient was observed for episode of syncope. He had no events on telemetry, he was in atrial fibrillation with slow ventricular response, as low as the 40s at nighttime, but improved appropriately to the 80s on exertion. Most likely syncopal event was vasovagal. Orthostatics were negative. He was seen by Cardiology for his atrial fibrillation. Recommendations were to start anticoagulation, he will be started on Eliquis. Echocardiogram showed normal ejection fraction, he did have mild increased right ventricular cavity size, however, D-dimer was done which was less than 200. Patient is feeling back to normal will be discharged home. Patient did have some workup for his elevated ALT, hepatitis serologies are pending and should be followed up. Time Spent with Patient Time attestation: Total time spent providing and/or coordinating discharge services: Discharge coordination time: Greater than 30 minutes Quality: Stroke Does the patient have a stroke diagnosis?: No Physical Exam Vital Signs: Vital Signs: Last Vital Signs Temp 97.8 F 09/26/21 13:42 Pulse 66 09/26/21 13:42 Resp 12 09/26/21 13:42 BP 125/66 09/26/21 13:42 Pulse Ox 98 09/26/21 13:42 Body Mass Index 21.9 General: AO X 3, no acute distress Resp: CTA bilateral, no accessory muscles used CVS: S1,S2, irregular GI: soft, non tender, non distended Neuro: motor grossly intact, alert Psych: appropriate affect, appropriate insight DS: Data Data Completed and Pending Labs on day of discharge: Laboratory Results - last 24 hr 09/25/21 09/25/21 09/25/21 16:10 16:10 17:51 WBC 9.2 RBC 4.94 Hgb 16.9 Hct 49.5 MCV 100.2 H MCH 34.2 H MCHC 34.1 RDW 12.7 Plt Count 274 MPV 9.1 L Immature Gran % (Auto) 0.3 Neut % (Auto) 80.7 H Lymph % (Auto) 12.7 L [place] % (Auto) 5.5 Eos % (Auto) 0.3 Baso % (Auto) 0.5 Lymph # (Auto) 1.2 [place] # (Auto) 0.5 Eos # (Auto) 0.0 Baso # (Auto) 0.1 Abs Immat Gran (auto) 0.03 Absolute Neuts (auto) 7.4 Absolute Nucleated RBC 0.000 Nucleated RBC % (auto) 0.0 D-Dimer Sodium Potassium Chloride Carbon Dioxide Anion Gap BUN Creatinine Estim Creat Clear Calc Estimated GFR Random Glucose Calcium Troponin I High Sens 6.3 Vitamin B12 Folate TSH COVID-19 (DARREN) Negative COVID-19 [employer] [facility] See Note 09/25/21 09/25/21 09/26/21 17:57 Unknown 14:39 WBC RBC Hgb Hct MCV MCH MCHC RDW Plt Count MPV Immature Gran % (Auto) Neut % (Auto) Lymph % (Auto) [place] % (Auto) Eos % (Auto) Baso % (Auto) Lymph # (Auto) [place] # (Auto) Eos # (Auto) Baso # (Auto) Abs Immat Gran (auto) Absolute Neuts (auto) Absolute Nucleated RBC Nucleated RBC % (auto) D-Dimer < 200 Sodium 140 Potassium 4.1 Chloride 103 Carbon Dioxide 27 Anion Gap 14 BUN 16 Creatinine 0.90 Estim Creat Clear Calc 67.6 Estimated GFR > 60 Random Glucose 118 H D Calcium 9.8 D Troponin I High Sens Vitamin B12 912 H Folate 18.7 TSH 0.91 COVID-19 (DARREN) COVID-19 Clin Com Discharge Plan Discharge Patient Disposition: Home, Self-Care Discharge Diagnosis: syncope, afib Referrals: Bjorn Arauz MD [Primary Care Provider] - 1 Week Discharge Medications: New apixaban 5 mg tablet 5 mg PO BID Qty: 60 RF: 0 Continued sildenafil 50 mg tablet 50 mg PO DAILY PRN (Reason: sexual activity) Qty: 4 RF: 4 multivitamin Tablet 1 tab PO DAILY RF: 0 omeprazole 20 mg capsule,delayed release(DR/EC) 20 mg PO DAILY@0630 RF: 0 Discharge Orders: Discharge Order (Routine); Ordered 09/26/21 Ordered By: Ronaldo Fletcher Diet: advance to usual diet Activity on Discharge: As tolerated Stand Alone Forms: Patient Portal Discharge page Care Plan Goals: Avoid further syncope, manage atrial fibrillation, prevent strokes Health Concerns: New diagnosis of atrial fibrillation, likely vasovagal syncope Plan of Treatment: Start on Eliquis 5 mg twice daily, follow-up with Cardiology Assessment: See above
--- NOTE | 2021-09-26 15:42 | MHC.CM.PN ---
pt dcd home no skilled servceis ordered by
[2021-09-28 03:45] LABS: HBS Num1 0.37 mIU/mL (0-7.99); HBc Num1 0.03 S/CO (0.00-0.79); Hepatitis B Core Antibody Nonreactive (Nonreactive); Hepatitis B Surface Antigen Negative (Negative); ~Hepatitis B Surface Antibody NONREACTIVE (Nonreactive)
[2021-09-28 03:53] LABS: ~HepC Num1 0.09 S/CO (0.00-0.79); ~Hepatitis C Antibody Nonreactive (Nonreactive)
== END 2021-09-26 16:13 | disposition home or self-care (01) ==
LOC: HO.ED 17:09 → HO.EDOVER 17:39 → HO.IMC 09-26 15:29
PROVIDERS: Admitting Provider Physician Assistant Medical; Emergency Provider Emergency Medicine; PCP Family Medicine; Visit Provider Internal Medicine
DX: R55 Syncope and collapse (principal); I48.91 Unspecified atrial fibrillation; I71.4 Abdominal aortic aneurysm, without rupture; R94.31 Abnormal electrocardiogram [ECG] [EKG]; M54.16 Radiculopathy, lumbar region; R74.01 Elevation of levels of liver transaminase levels; R56.9 Unspecified convulsions; Z87.891 Personal history of nicotine dependence; Z20.822 Contact with and (suspected) exposure to COVID-19; Z79.899 Other long term (current) drug therapy
CPT/HCPCS: 36415; 70450; 80048; 82607; 82746; 84443; 84484; 85025; 85379; 86704; 86706; 86803; 87340; 87635; 93005; 93306; 96372; 96374; 99219; 99285; J1650

== ENCOUNTER → 2021-10-19 12:38 | Outpatient (BNVA) | payer MEDICARE, SELFPAY | PROVIDERS: PCP Family Medicine; Referring Provider Family Medicine; Visit Provider Internal Medicine Cardiovascular Disease | DX: I71.4 Abdominal aortic aneurysm, without rupture (principal); I48.91 Unspecified atrial fibrillation; R55 Syncope and collapse; M79.606 Pain in leg, unspecified | CPT/HCPCS: 93005; 99212 ==

== ENCOUNTER 2021-10-30 13:52 | Outpatient (REF) | payer MEDICARE, SELFPAY ==
--- NOTE | ~2021-10-30 | US_ITS ---
EXAMINATION: NONINVASIVE ASSESSMENT OF THE ARTERIES OF BOTH LOWER EXTREMITIES WITH PVR EXAM CLINICAL INFORMATION: Peripheral vascular disease TECHNIQUE: Ankle pulse volume recordings, ankle pressure measurements and ankle brachial indices were obtained of the lower extremity arterial system bilaterally. COMPARISON: None. FINDINGS: ANKLE-BRACHIAL INDEX: Right: 1.43 Left: 1.29. ANKLE PRESSURES: Right: PT 190, DP 171 Left: PT 171, DP 163 PVR WAVEFORM: Right: normal. Left: normal. US/US JEN complete IMPRESSION: Elevated bilateral ABIs suggest atherosclerotic calcification. Normal bilateral PVR waveform. JEN Reference: - >0.97-1.25 = normal - no significant arterial disease. - 0.75-0.96 = mild peripheral arterial disease. - 0.5-0.74 = moderate peripheral arterial disease. - <0.50 = severe peripheral arterial disease.
== END 2021-10-30 13:53 | disposition home or self-care (01) ==
LOC: HO.US 13:52
PROVIDERS: Visit Provider Internal Medicine Cardiovascular Disease
DX: I73.9 Peripheral vascular disease, unspecified (principal)
CPT/HCPCS: 93923

== ENCOUNTER → 2021-11-06 14:46 | Outpatient (REF) | payer MEDICARE, SELFPAY ==
--- NOTE | 2021-11-06 14:48 | HM_ITS ---
Conclusion: 1. Patient was monitored for total period of 3 days and 14 hours 2. Baseline with atrial fibrillation with average heart rate of 61 beats per minute 3. Frequent slow ventricular response to atrial fibrillation noted with multiple pauses greater than 3 seconds with longest pause of 2nd noted on day 4 at 03:57 4. Two episodes of VT noted longest lasting 5 beats 5. Total of 1363 PVCs accounting for 0.52% total burden account for occasional PVCs 6. No patient reported events MTDD
== END ==
LOC: HO.CARD 14:46
PROVIDERS: Visit Provider Internal Medicine Cardiovascular Disease
DX: R55 Syncope and collapse (principal)
CPT/HCPCS: 93242

== ENCOUNTER → 2022-04-05 12:40 | Outpatient (BNVA) | payer MEDICARE, SELFPAY | PROVIDERS: PCP Family Medicine; Referring Provider Family Medicine; Visit Provider Internal Medicine Cardiovascular Disease | DX: I48.20 Chronic atrial fibrillation, unspecified (principal); I71.4 Abdominal aortic aneurysm, without rupture | CPT/HCPCS: 99212 ==

== ENCOUNTER 2022-05-13 09:50 | Outpatient (REF) | payer MEDICARE, SELFPAY ==
--- NOTE | ~2022-05-13 | US_ITS ---
EXAMINATION: US RETROPERITONEAL LIMITED (AORTA) CLINICAL INFORMATION: Abdominal aortic aneurysm without rupture. COMPARISON: Ultrasound aorta 04/29/2021. TECHNIQUE: Ramirez-scale, color Doppler and spectral Doppler evaluation of the abdominal aorta. FINDINGS: The measurements of the aorta in maximum AP and transverse dimensions respectively are as follows: Proximal: 2.6 x 2.7 cm. Mid: 2.4 x 2.5 cm. Distal: 3.3 x 3.8 cm. PSV: 61 cm/s. The measurements of the common iliac arteries in maximum AP and TRV dimensions are as follows: Right Common Iliac Artery: 1.3 x 1.3 cm. Left Common Iliac Artery: 1.4 x 1.3 cm. US/US aorta IMPRESSION: Mild aneurysmal dilatation of distal abdominal aorta measuring 3.3 x 3.8 cm. The patent lumen measures 1.8 x 1.7 cm in AP and transverse dimension.
== END 2022-05-13 09:51 | disposition home or self-care (01) ==
LOC: HO.US 09:50
PROVIDERS: Visit Provider Internal Medicine Cardiovascular Disease
DX: I71.4 Abdominal aortic aneurysm, without rupture (principal)
CPT/HCPCS: 76775

== ENCOUNTER 2022-06-11 10:05 | Outpatient (REF) | payer MEDICARE, SELFPAY ==
[2022-06-11 11:33] LABS: MANUAL DIFF FLAG NO
[2022-06-11 11:39] LABS: Basophils Percent Auto 0.8 % (0-2); Eosinophils Absolute Auto 0.1 X10*3/uL (0.0-0.4); Eosinophils Percent Auto 1.8 % (0-4); Hematocrit 43.4 % (42.0-52.0); Hemoglobin 14.6 g/dl (14.0-18.0); Imm Gran Abs Auto 0.01 X10*3/uL (0.00-0.03); Imm Gran Pct Auto 0.2 % (0.0-0.4); Lymphocytes Absolute Auto 1.3 X10*3/uL (1.2-4.9); Lymphocytes Percent Auto 25.7 % (20-40); Mean Corpuscular HGB Conc 33.6 g/dl (31.0-36.0); Mean Corpuscular Hemoglobin 34.3 pg (27.0-33.0); Mean Corpuscular Volume 101.9 fL (80.0-98.0); Mean Platelet Volume 9.1 fL (9.4-12.4); Monocytes Absolute Auto 0.4 X10*3/uL (0.1-1.2); Monocytes Percent Auto 7.1 % (2-11); Neutrophils Absolute Auto 3.3 x10*3/uL (2.0-8.3); Neutrophils Percent Auto 64.4 % (45-73); Platelet Count 227 X10*3/uL (160-400); Red Blood Count 4.26 X10*6/uL (4.60-5.80); Red Cell Distribution Width 12.5 % (11.0-16.0); White Blood Count 5.1 X10*3/uL (4.8-10.8)
[2022-06-11 11:53] LABS: Appearance Urine CLEAR; Color Urine YELLOW; Glucose Urine UA NEG (NEG); Leukocyte Esterase Urine NEG (NEG); Nitrite Urine NEG (NEG); Urine Blood NEG (NEG); Urine Ketones NEG (NEG); Urine Protein NEG (NEG-TRACE)
[2022-06-11 12:04] LABS: Alanine Aminotransferase 21 U/L (0-40); Alkaline Phosphatase 55 U/L (39-117); Anion Gap 11 (12-20); Aspartate Amino Transferase 18 U/L (5-37); Bilirubin Total 1.7 mg/dL (0.0-1.0); Blood Urea Nitrogen 22 mg/dL (9-16); Calcium 8.7 mg/dL (8.4-10.2); Carbon Dioxide 26 mmol/L (22-29); Chloride 107 mmol/L (96-108); Cholesterol 160 mg/dL; Estimated Glomerular Filt Rate > 60; Glucose Fasting 89 mg/dL (60-99); HDL Cholesterol 68 mg/dL; LDL Cholesterol Calculated 83 mg/dl; Potassium 4.2 mmol/L (3.3-5.1); Sodium 140 mmol/L (135-145); Total Protein 6.2 g/dL (6.5-8.0); Triglycerides 49 mg/dL
[2022-06-11 12:28] LABS: Prostate Specific Antigen Scr 2.51 ng/mL (<0.05-4.0); TSH reflex Free T4 1.26 uIU/mL (0.32-4.0)
[2022-06-11 12:42] LABS: Creatinine Urine 151.89 mg/dL; Microalbum/Creatinine Ratio Ur 5.9 ug/mg cr
== END 2022-06-11 10:06 | disposition home or self-care (01) ==
LOC: HO.WFDLDS 10:05
PROVIDERS: Visit Provider Family Medicine
DX: Z00.00 Encounter for general adult medical examination without abnormal findings (principal); Z12.5 Encounter for screening for malignant neoplasm of prostate; I10 Essential (primary) hypertension
CPT/HCPCS: 36415; 80053; 80061; 81003; 82043; 84153; 84443; 85025

== ENCOUNTER 2022-07-30 11:27 | Outpatient (REF) | payer MEDICARE, SELFPAY ==
[2022-07-30 13:47] LABS: MANUAL DIFF FLAG NO
[2022-07-30 13:49] LABS: Basophils Absolute Auto 0.1 X10*3/uL (0.0-0.2); Basophils Percent Auto 1.1 % (0-2); Eosinophils Absolute Auto 0.1 X10*3/uL (0.0-0.4); Eosinophils Percent Auto 1.1 % (0-4); Hematocrit 43.5 % (42.0-52.0); Hemoglobin 14.7 g/dl (14.0-18.0); Imm Gran Abs Auto 0.01 X10*3/uL (0.00-0.03); Imm Gran Pct Auto 0.2 % (0.0-0.4); Immature Retic Fraction 9.9 % (2.3-13.4); Lymphocytes Absolute Auto 1.3 X10*3/uL (1.2-4.9); Mean Corpuscular HGB Conc 33.8 g/dl (31.0-36.0); Mean Corpuscular Hemoglobin 34.3 pg (27.0-33.0); Mean Corpuscular Volume 101.6 fL (80.0-98.0); Mean Platelet Volume 9.5 fL (9.4-12.4); Monocytes Absolute Auto 0.4 X10*3/uL (0.1-1.2); Monocytes Percent Auto 8.4 % (2-11); Neutrophils Absolute Auto 2.7 x10*3/uL (2.0-8.3); Neutrophils Percent Auto 60.2 % (45-73); Platelet Count 213 X10*3/uL (160-400); Red Blood Count 4.28 X10*6/uL (4.60-5.80); Red Cell Distribution Width 12.8 % (11.0-16.0); Retic HGB Equivalent 38.9 pg (30.0-35.0); Reticulocyte Percent 1.1 % (0.5-1.8); Reticulocytes Absolute 0.048 X10*6/uL (0.026-0.095); White Blood Count 4.6 X10*3/uL (4.8-10.8)
[2022-07-30 14:08] LABS: Alanine Aminotransferase 26 U/L (0-40); Albumin Level 4.2 g/dL (3.5-5.0); Alkaline Phosphatase 63 U/L (39-117); Anion Gap 15 (12-20); Aspartate Amino Transferase 22 U/L (5-37); Bilirubin Total 1.3 mg/dL (0.0-1.0); Blood Urea Nitrogen 17 mg/dL (9-16); Carbon Dioxide 25 mmol/L (22-29); Chloride 105 mmol/L (96-108); Estimated Glomerular Filt Rate > 60; Glucose Random 77 mg/dL (60-115); Iron 100 mcg/dL (45-160); Percent Iron Saturation 33 % (15-50); Potassium 4.3 mmol/L (3.3-5.1); Sodium 141 mmol/L (135-145); Total Iron Binding Capacity 305 mcg/dL (228-428); Total Protein 6.6 g/dL (6.5-8.0); Unsaturated Iron Binding 205 ug/dL
== END 2022-07-30 11:28 | disposition home or self-care (01) ==
LOC: HO.WFDLDS 11:27
PROVIDERS: Visit Provider Family Medicine
DX: Z00.00 Encounter for general adult medical examination without abnormal findings (principal); D75.89 Other specified diseases of blood and blood-forming organs
CPT/HCPCS: 36415; 80053; 83540; 85025; 85045

== ENCOUNTER 2022-08-30 08:28 | Outpatient (REF) | payer MEDICARE, SELFPAY ==
--- NOTE | ~2022-08-30 | US_ITS ---
EXAMINATION: US ABDOMEN COMPLETE CLINICAL INFORMATION: Question liver disease, history of alcoholism. COMPARISON: US retroperitoneal limited (aorta) 05/13/2022. TECHNIQUE: Real-time imaging of the abdominal viscera. FINDINGS: PANCREAS: The head and the body of the pancreas is homogeneous echotexture. The tail is obscured by overlying gas. ABDOMINAL AORTA: The proximal and distal abdominal aorta are normal caliber. The midsegment is not visualized. INFERIOR VENA CAVA: Visualized portions are normal. LIVER: The liver is normal in size. The liver contour is normal. The liver is diffusely echogenic with heterogeneous echotexture. No focal hepatic lesion. There is no intrahepatic biliary duct dilatation seen. GALLBLADDER: Normal. The gallbladder is physiologically distended without evidence of stones, sludge, polyps, wall thickening or pericholecystic fluid. COMMON BILE DUCT: Normal in caliber measuring 0.3 cm in diameter. RIGHT KIDNEY: Normal. No hydronephrosis. No renal calculi or focal parenchymal lesions. The kidney measures 9.2 cm in maximum dimension. LEFT KIDNEY: Normal. No hydronephrosis. No renal calculi or focal parenchymal lesions. The kidney measures 8.9 cm in maximum dimension. SPLEEN: Normal. The spleen measures 9.1 cm in maximum dimension. FREE FLUID: None. US/US abdomen complete IMPRESSION: Liver is diffusely echogenic with heterogeneous texture. No focal lesion. The rest of the abdominal ultrasound is grossly unremarkable.
== END 2022-08-30 08:29 | disposition home or self-care (01) ==
LOC: HO.US 08:28
PROVIDERS: Visit Provider Internal Medicine Medical Oncology
DX: D75.89 Other specified diseases of blood and blood-forming organs (principal)
CPT/HCPCS: 76700

== ENCOUNTER → 2022-09-24 14:00 | Outpatient (BNVA) | payer MEDICARE, SELFPAY | PROVIDERS: PCP Family Medicine; Visit Provider Urology | DX: R39.11 Hesitancy of micturition (principal); N40.1 Benign prostatic hyperplasia with lower urinary tract symptoms; N13.8 Other obstructive and reflux uropathy; Z12.5 Encounter for screening for malignant neoplasm of prostate | CPT/HCPCS: 51798; 99202 ==

== ENCOUNTER → 2023-03-29 12:30 | Outpatient (BNVA) | payer MEDICARE, SELFPAY | PROVIDERS: PCP Family Medicine; Visit Provider Physician Assistant | DX: Z12.11 Encounter for screening for malignant neoplasm of colon (principal); R74.01 Elevation of levels of liver transaminase levels; Z86.010 Personal history of colon polyps; Z79.01 Long term (current) use of anticoagulants | CPT/HCPCS: 99202 ==

== ENCOUNTER 2023-04-29 13:10 | Outpatient (AMB) | payer MEDICARE, SELFPAY ==
--- NOTE | 2023-04-29 13:18 | MHC.OFFVIS ---
Intake Intake Visit Reasons: 6m follow up/PVR/PSA(?) Intake Note: Pt presents to the office today for a 6 month f/u PVR/PSA. Urinalysis done. PVR 40. Allergies No Known Allergies Allergy (Verified 06/13/23 11:06) Medication List - Last Reconciled 04/29/23 by Luis Fernando Cabral MD apixaban (Eliquis) 5 mg PO BID bisacodyl (Dulcolax (bisacodyl)) 10 mg (2 x 5 mg) PO ONCE 1 day Ca carb-Ca gluc-Mg ox-Mg gluco 500 mg calcium -250 mg (Calcium Magnesium) tabs PO cholecalciferol (vitamin D3) (Vitamin D3) 25 mcg PO DAILY chromium picolinate 200 mcg PO DAILY lactobacillus combination no.4 (Probiotic) 3,000 mmu cells PO DAILY multivitamin 1 tab PO DAILY niacinamide 500 mg PO BID omega-3 fatty acids 500 mg PO DAILY omeprazole 20 mg PO DAILY@0630 polyethylene glycol 3350 (Miralax) 238 grams PO ONCE PRN 1 day saw palmetto 160 mg PO BID sildenafil 50 mg PO DAILY PRN tamsulosin (Flomax) 0.4 mg PO BID HPI HPI Comments History of Present Illness Details Ezra is a 72-year-old male who presents to the office for BPH and urinary hesitancy follow-up. 04/29/23-- He was initially evaluated on 09/24/22 for obstructive voiding symptoms, urinary hesitancy and postvoid dribbling. He has been using saw palmetto 160 mg twice a day. The patient states that his PCP started him on Flomax prior to his previous visit which he thinks is helping. In review of his chart he had performed PSA on 2021 that was 2.51. I discussed monitoring his PSA. The patient is taking Flomax and states benefits with the medication. The patient is due for PSA blood work in May which is ordered by his PCP. Evaluation today-- blood: negative, leukocytes: negative. Bladder scan PVR: 40 mL. AUA symptom score-- 17. Plan: Flomax 0.4 mg BID was ordered. Follow-up in a year. [facility] Medical History AAA (abdominal aortic aneurysm) Aortic aneurysm Elevated transaminase level Lumbar radiculitis Surgical History History of tonsillectomy Family History Mother No problems noted. Father No problems noted. Social History Household Members: None [facility] Alcohol intake: former Patient Tobacco Use Status: Former Tobacco user Quit Date: 1980 Smoked: 10+/- e-Cigarette/Vaping Use: Never Used Second Hand Smoke Exposure: No service: No Current occupational status: retired Current occupational exposures/hazards: No Cognitive needs: No Hearing needs: No Vision needs: No Questionnaire AUA Symptom Score AUA Incomplete emptying - It does not feel like I empty my bladder all the way.: 2 - Less than half the time Frequency - I have to go again less than two hours after I finish urinating.: 3 - About half the time Intermittency - I stop and start again several times when I urinate.: 2 - Less than half the time Urgency - It is hard to wait when I have to urinate.: 2 - Less than half the time Weak stream - I have a weak urinary stream.: 3 - About half the time Straining - I have to push or strain to begin urination.: 2 - Less than half the time Nocturia - I get up to urinate after I go to bed until the time I get up in the morning.: 3 times AUA Symptom Score: 17 Quality of life due to urinary symptoms: If you were to spend the rest of your life with your urinary condition the way it is now, how would you feel about that?: Mixed: about equally satisfied and dissatisfied Source: Anthony SIMON, Ken RICKS Jr, O'Sofia MP, et al, and the Measurement Committee of the [employer] [employer]. The [place] [employer] symptom index for benign prostatic hyperplasia. J Urol. 1992; 148: 5158-1613. Copyright 1992 [place] [employer] Review of Systems Const All systems reviewed & are unremarkable except as noted in HPI and below Reports no additional complaints Eyes Reports no additional complaints ENT Denies neck pain Card Denies leg edema Resp Denies cough GI Denies constipation Musc Reports no additional complaints and Denies neck pain Skin/Breast Denies rash and Denies unusual bruising Neuro Reports no additional complaints Psych Reports no additional complaints Endo Reports no additional complaints Chidi/Lymph Reports no additional complaints Aller/Immun Reports no additional complaints Physical Exam Const General: healthy appearing, no acute distress and well developed Orientation/consciousness: patient oriented x3 HEENT Head: Yes normocephalic and Yes atraumatic Eyes Conjunctivae: conjunctivae normal Neck Neck: Yes normal visual inspection Chest Chest palpation & inspection: normal inspection of the chest Resp Effort & Inspection: normal respiratory effort Cardio Rate: regular rate GI Inspection: Yes normal to inspection Palpation (GI): Soft to palpation Skin General skin exam: no rashes or lesions noted Neuro General: patient oriented x3 Extrem General: No pedal edema Psych Appearance: grossly normal Affect: normal affect Office Procedures Post Void Residual Post Residual Void Post Void Residual (PVR): 40 [id number] Void Residual by ultrasound Results AMB Urinalysis, Automated UA Leukoctes 0 Gaudencio/uL Last Edit by Halina Archuleta MA on 04/29/23 13:21 UA Nitrite Negative Last Edit by Halina Archuleta MA on 04/29/23 13:21 UA Urobilinogen 0.2 mg/dL Last Edit by Halina Archuleta MA on 04/29/23 13:21 UA Protein 15 mg/dL Last Edit by Halina Archuleta MA on 04/29/23 13:21 UA pH 7.5 Last Edit by Halina Archuleta MA on 04/29/23 13:21 UA Blood 0 Frederic/uL Last Edit by Halina Archuleta MA on 04/29/23 13:21 UA Specific Parker 1.010 Last Edit by Halina Archuleta MA on 04/29/23 13:21 UA Ketone Negative Last Edit by Halina Archuleta MA on 04/29/23 13:21 UA Bilirubin 0 mg/dL Last Edit by Halina Archuleta MA on 04/29/23 13:21 UA Glucose 0 mg/dL Last Edit by Halina Archuleta MA on 04/29/23 13:21 Results Reviewed Results Reviewed: Laboratory Last Values Urine pH (Auto) 7.5 04/29/23 13:20 Specific Parker (Auto) 1.010 04/29/23 13:20 Urine Protein (Auto) 15 mg/dL 04/29/23 13:20 Glucose (UA)(Auto) 0 mg/dL 04/29/23 13:20 Urine Ketones (Auto) Negative 04/29/23 13:20 Urine Blood (Auto) 0 Frederic/uL 04/29/23 13:20 Urine Nitrite (Auto) Negative 04/29/23 13:20 Urine Bilirubin (Auto) 0 mg/dL 04/29/23 13:20 Urine Urobilinogen (Auto) 0.2 mg/dL 04/29/23 13:20 Leukocyte Esterase (Auto) 0 Gaudencio/uL 04/29/23 13:20 Assessment & Plan Assessment & Plan (1) Urinary hesitancy: Code(s): R39.11 - Hesitancy of micturition (2) BPH loc w urin obs/LUTS: Code(s): N40.1 - Benign prostatic hyperplasia with lower urinary tract symptoms Plan Flomax 0.4 mg BID was ordered. Follow-up in a year. Orders: Orders AMB Urinalysis Automated 04/29/23 Z13.9 - Encounter for screening, unspecified AMB Post Void Residual by ultrasound 04/29/23 R39.11 - Hesitancy of micturition Medications: New tamsulosin (Flomax) 0.4 mg PO BID 180 caps 3RF Patient Instructions: The patient had an opportunity to ask questions regarding treatment plan. All questions were answered. Imaging, Laboratory studies and physical exam results were discussed and reviewed in detail. No major barriers to understanding were identified. The patient expressed understanding and agreement with the above treatment plan. The patient is aware they should contact our office by phone for worsening of their current condition or the appearance of new symptoms. Compliance is encouraged with any medications and followup testing that is ordered. It is a privilege to be allowed the opportunity to participate in the urologic care of your patient. If you have any questions or concerns regarding treatment for the above conditions please do not hesitate to contact me. The office telephone contact is [phone]. This note is constructed in part using voice recognition software. While every effort has been made to ensure accuracy electric meter tester shop errors may have been included. Yours sincerely, Luis Fernando Cabral MD Quality Reporting (2019) Benign Prostatic Hyperplasia ([facility] 771) AUA symptom score: 17 Quality of life due to urinary symptoms: If you were to spend the rest of your life with your urinary condition the way it is now, how would you feel about that?: Mixed: about equally satisfied and dissatisfied Coding Level of Care Code New Pt Level 3 (61067) Diagnoses Urinary hesitancy R39.11 BPH loc w urin obs/LUTS N40.1 CPT Codes Post Residual Void - PVR CPT Code: 78097-Wcux Void Residual by ultrasound ([id number])
== END 2023-04-29 13:45 | disposition home or self-care (01) ==
LOC: HO.HUSH 13:11
PROVIDERS: PCP Family Medicine; Visit Provider Urology
DX: N40.1 Benign prostatic hyperplasia with lower urinary tract symptoms (principal); R39.11 Hesitancy of micturition
CPT/HCPCS: 99213

== ENCOUNTER → 2023-04-29 13:10 | Outpatient (BNVA) | payer MEDICARE, SELFPAY | PROVIDERS: PCP Family Medicine; Visit Provider Urology | DX: N40.1 Benign prostatic hyperplasia with lower urinary tract symptoms (principal); R39.11 Hesitancy of micturition | CPT/HCPCS: 51798; 99212 ==

== ENCOUNTER → 2023-05-16 13:36 | Outpatient (BNVA) | payer MEDICARE, SELFPAY | PROVIDERS: PCP Family Medicine; Referring Provider Family Medicine; Visit Provider Internal Medicine Cardiovascular Disease | DX: I48.21 Permanent atrial fibrillation (principal); I71.40 Abdominal aortic aneurysm, without rupture, unspecified | CPT/HCPCS: 93005; 99212 ==

== ENCOUNTER 2023-06-01 10:07 | Outpatient (REF) | payer MEDICARE, SELFPAY ==
[2023-06-01 11:43] LABS: MANUAL DIFF FLAG NO
[2023-06-01 11:44] LABS: Eosinophils Absolute Auto 0.1 X10*3/uL (0.0-0.4); Eosinophils Percent Auto 1.9 % (0-4); Hematocrit 43.8 % (42.0-52.0); Hemoglobin 14.8 g/dl (14.0-18.0); Lymphocytes Absolute Auto 1.4 X10*3/uL (1.2-4.9); Lymphocytes Percent Auto 34.2 % (20-40); Mean Corpuscular HGB Conc 33.8 g/dl (31.0-36.0); Mean Corpuscular Hemoglobin 34.5 pg (27.0-33.0); Mean Corpuscular Volume 102.1 fL (80.0-98.0); Mean Platelet Volume 9.3 fL (9.4-12.4); Monocytes Absolute Auto 0.3 X10*3/uL (0.1-1.2); Monocytes Percent Auto 7.2 % (2-11); Neutrophils Absolute Auto 2.3 x10*3/uL (2.0-8.3); Neutrophils Percent Auto 55.7 % (45-73); Platelet Count 219 X10*3/uL (160-400); Red Blood Count 4.29 X10*6/uL (4.60-5.80); Red Cell Distribution Width 12.5 % (11.0-16.0); White Blood Count 4.2 X10*3/uL (4.8-10.8)
== END 2023-06-01 10:08 | disposition home or self-care (01) ==
LOC: HO.WFDLDS 10:07
PROVIDERS: Visit Provider Family Medicine
DX: Z00.00 Encounter for general adult medical examination without abnormal findings (principal); Z12.5 Encounter for screening for malignant neoplasm of prostate; Z20.2 Contact with and (suspected) exposure to infections with a predominantly sexual mode of transmission
CPT/HCPCS: 36415; 80053; 80061; 81003; 84153; 84443; 85025

== ENCOUNTER 2023-06-06 10:19 | Outpatient (REF) | payer MEDICARE, SELFPAY ==
--- NOTE | ~2023-06-06 | US_ITS ---
EXAMINATION: US RETROPERITONEAL LIMITED (AORTA) CLINICAL INFORMATION: Abdominal aortic aneurysm, without rupture. COMPARISON: US retroperitoneal limited (aorta) 05/13/2022 and 04/29/2021. MRI lumbar spine 09/11/2021. TECHNIQUE: Ramirez-scale, color Doppler and spectral Doppler evaluation of the abdominal aorta. FINDINGS: The measurements of the aorta in maximum AP and transverse dimensions respectively are as follows: Proximal: 2.4 x 2.7 cm. Mid: 2.1 x 2.0 cm. Distal: 2.7 x 2.6 cm. Previously the distal aorta was felt to measure 3.3 x 3.8 cm-however, these measurements may have included soft tissues anterior and posterior to the aorta itself. On the MRI from 09/11/2021, no aortic aneurysm was seen and measurements are similar to those on this exam. PSV: 60.6 cm/s. The measurements of the common iliac arteries in maximum AP and TRV dimensions are as follows: Right Common Iliac Artery: 1.2 x 1.1 cm. Left Common Iliac Artery: 1.2 x 1.0 cm. US/US aorta IMPRESSION: I do not believe that a distal aortic aneurysm is present. I suspect that at the time of the prior ultrasound, some soft tissue anterior and posterior to the aorta was included in the measurements over estimating the size. As stated in prior reports, CT scan could be performed for further evaluation.
== END 2023-06-06 10:20 | disposition home or self-care (01) ==
LOC: HO.US 10:19
PROVIDERS: PCP Family Medicine; Visit Provider Internal Medicine Cardiovascular Disease
DX: I71.40 Abdominal aortic aneurysm, without rupture, unspecified (principal)
CPT/HCPCS: 76775

== ENCOUNTER 2023-06-13 10:58 | Outpatient (AMB) | payer MEDICARE, SELFPAY ==
--- NOTE | 2023-06-13 11:02 | MHC.PC.OV ---
Vital Signs 06/13/23 11:04 Height 5 ft 7 in Weight 150 lb 8 oz BMI 23.6 BP 128/68 Blood Pressure Location Lt brachial Position Sitting Pulse 57 Pulse Source Pulse Oximeter Pulse Oximetry (%) 97 Oxygen Delivery Method Room Air Intake Visit Reasons: CPE with f/u labs and health maintenance Intake Note: Patient is here for a physical today, and follow up on labs and health maintenance. Allergies No Known Allergies Allergy (Verified 06/13/23 11:06) Medication List - Last Reconciled 06/13/23 by Bjorn Arauz MD apixaban (Eliquis) 5 mg PO BID bisacodyl (Dulcolax (bisacodyl)) 10 mg (2 x 5 mg) PO ONCE 1 day Ca carb-Ca gluc-Mg ox-Mg gluco 500 mg calcium -250 mg (Calcium Magnesium) tabs PO cholecalciferol (vitamin D3) (Vitamin D3) 25 mcg PO DAILY chromium picolinate 200 mcg PO DAILY lactobacillus combination no.4 (Probiotic) 3,000 mmu cells PO DAILY multivitamin 1 tab PO DAILY niacinamide 500 mg PO BID omega-3 fatty acids 500 mg PO DAILY omeprazole 20 mg PO DAILY@0630 polyethylene glycol 3350 (Miralax) 238 grams PO ONCE PRN 1 day saw palmetto 160 mg PO BID sildenafil 50 mg PO DAILY PRN tamsulosin (Flomax) 0.4 mg PO BID Tobacco use date assessed: 06/13/23 Fall risk assessment: No Falls in past year Last assessed Fall Risk: 06/13/23 Dental Screening Dental Screen Date: 06/13/23 Did you have a dental visit in the last 12 months?: Yes Did you have a dental problem in the last 6 months where you did not have access to dental care?: No Was dental information given to patient?: No HPI CPE with f/u labs and health maintenance HPI Details 73 y/o male presents for a CPE with f/u labs and health maintenance. Labs were drawn 06/01/23. Reviewed labs with pt. Ongoing macrocystosis. Triglycerides 66. TC 162. LDL 84. HDL 65. Pt states flomax has been helping him for his urinary hesitancy though he does note he has been struggling with ejaculation. [facility] Medical History AAA (abdominal aortic aneurysm) Aortic aneurysm Elevated transaminase level Lumbar radiculitis Surgical History History of tonsillectomy Family History Mother No problems noted. Father No problems noted. Social History Household Members: None [facility] Alcohol intake: former Patient Tobacco Use Status: Former Tobacco user Quit Date: 1980 Smoked: 10+/- e-Cigarette/Vaping Use: Never Used Second Hand Smoke Exposure: No service: No Current occupational status: retired Current occupational exposures/hazards: No Cognitive needs: No Hearing needs: No Vision needs: No Questionnaire Thrive Questionnaire Date Thrive assessed: 09/30/21 CHASE-7 AMB Questionnaire CHASE-7 Date CHASE - 7 assessed: 07/08/22 Source: Developed by Drs. Ezra Ramos, Ellie Mayberry, Dmitriy Rivas and colleagues, with an educational isa from [employer]. Review of Systems Const Denies chills, Denies fatigue, Denies fever(s), Denies headache(s) and Denies weakness Eyes Denies change in vision ENT Denies dizziness, Denies headache(s), Denies hearing loss, Denies nasal congestion, Denies sinus pain, Denies sinus pressure and Denies sore throat Card Denies chest pain, Denies lightheadedness, Denies dyspnea and Denies other (palpitations) Resp Denies cough, Denies dyspnea and Denies wheezing GI Denies abdominal pain, Denies melena, Denies hematochezia, Denies change in bowel habits, Denies dyspepsia and Denies nausea Denies hematuria and Denies dysuria Musc Denies abnormal gait, Denies myalgias, Denies arthralgias, Denies numbness and Denies tingling Skin/Breast Denies rash, Denies unusual bruising and Denies wounds Neuro Denies abnormal gait, Denies dizziness, Denies headache(s), Denies memory loss, Denies numbness, Denies Sensory deficit (Neuro), Denies tingling and Denies weakness Psych Denies anxiety, Denies depression and Denies memory loss Endo Denies cold intolerance, Denies fatigue, Denies heat intolerance, Denies polydipsia and Denies polyuria Chidi/Lymph Denies easy bleeding and Denies easy bruising Aller/Immun Denies wheezing Physical exam (Primary Care) Vital Signs: Last Vital Signs Pulse 57 06/13/23 11:04 BP 128/68 06/13/23 11:04 Pulse Ox 97 06/13/23 11:04 Oxygen Delivery Method Room Air 06/13/23 11:04 BMI result Body Mass Index 23.6 Tobacco/Smoking Status: Tobacco use Status Tobacco use date assessed 06/13/23 06/13/23 11:09 Patient Tobacco Use Status Former Tobacco user 06/13/23 11:05 e-Cigarette/Vaping Use Never Used 06/13/23 11:05 Thrive Assessment: Date of Thrive Assessment Date Thrive assessed 09/30/21 06/13/23 11:05 Const General: no acute distress, well developed, alert and awake Nutritional Appearance: well nourished Orientation/consciousness: patient oriented x3 HENMT Head: Yes normocephalic and Yes atraumatic Ears: hearing grossly normal bilaterally and TM's normal bilaterally General nose exam: Normal external nose present and Normal nares present Mouth: Normal oral and palatal mucosa present and moist mucous membranes Teeth and gingiva: dentition normal Throat: Yes posterior oropharynx normal Eyes General: appearance normal, both eyes and all related structures Pupils: Equal, round and reactive pupils present and Pupil accommodation reflex normal EOM: EOMs intact bilaterally Neck Neck: Yes normal visual inspection, Yes no lymphadenopathy and Yes trachea midline Thyroid: Thyroid normal Carotids: no bruits Lymphatic: no lymphadenopathy noted Chest Chest palpation & inspection: normal inspection of the chest Resp Effort & Inspection: normal respiratory effort Auscultation: clear to auscultation bilaterally Cardio Rate: regular rate Rhythm: regular rhythm Heart sounds: S1 normal heart sound present, S2 normal heart sound present, no gallops, no murmurs and no rubs Bruits: no abdominal aortic bruits and no carotid bruits GI Palpation (GI): No Abdominal aortic bruit present, Soft to palpation, nontender, No hepatosplenomegaly present and No Rebound tenderness present Auscultation: normal bowel sounds General: Yes no CVA tenderness Back/Spine/Pelvis Back: no CVA tenderness Cervical Spine: cervical ROM normal and No Cervical spine tenderness Thoracic/Lumbar Spine: thoraco-lumbar ROM normal, No pain with thoraco-lumbar ROM, No thoracic spinal tenderness and No lumbar spinal tenderness Skin Lesions: no lesions Rashes: no rashes Trauma: no lacerations or abrasions Wounds: no wounds Nails: normal Neuro General: patient oriented x3 Cranial nerves: Yes Equal, round and reactive pupils present Cognition (Neuro): normal cognition Gait exam (Neuro): Normal gait present Motor exam (neuro): 5/5 motor strength present throughout Sensory Exam: No Sensory deficit (Neuro) Deep tendon reflexes (DTR's): Right patellar reflex intensity grade: 2+ and Left patellar reflex intensity grade: 2+ Extrem General: Yes normal to inspection and No edema Psych Appearance: grossly normal Affect: normal affect Attitude: cooperative Thought process: Normal thought process present Assessment and Plan Assessment & Plan (1) Adult general medical exam: Code(s): Z00.00 - Encounter for general adult medical examination without abnormal findings Plan: 73-year-old male presents For complete physical exam Encouraged healthy diet with active lifestyle and plenty of exercise (2) Macrocytosis: Code(s): D75.89 - Other specified diseases of blood and blood-forming organs Plan: No anemia. He has been seen by Heme-Onc in the past Will follow periodically to ensure no anemia (3) Permanent atrial fibrillation: Code(s): I48.21 - Permanent atrial fibrillation Plan: He is on Eliquis Stable Follow-up with Cardiology as recommended (4) Arthritis, low back: Code(s): M47.819 - Spondylosis without myelopathy or radiculopathy, site unspecified Plan: He can use Tylenol and I will give him a script for Voltaren gel He has an appointment with the arthritis center in [place] and will follow-up there (5) Screening for prostate cancer: Code(s): Z12.5 - Encounter for screening for malignant neoplasm of prostate Plan: PSA was within normal limits (6) Screening for colon cancer: Code(s): Z12.11 - Encounter for screening for malignant neoplasm of colon Plan: Had been seen by [facility] but says he has not been scheduled for an appointment. Asked him to follow-up with GI Medications: New diclofenac sodium 1% (Voltaren Arthritis Pain) 4 grams topical QID PRN 100 grams 3RF pain 30 days Coding Level of Care Code Est Pt Level 3 (18744) Est Pt Prev Care >65y(23496) Diagnoses Adult general medical exam Z00.00 Macrocytosis D75.89 Permanent atrial fibrillation I48.21 Arthritis, low back M47.819 Screening for prostate cancer Z12.5 Screening for colon cancer Z12.11
[2023-06-13 11:04] VITALS: BP 128/68; PULSE 57; O2SAT 97; BMI 23.6
== END 2023-06-13 12:19 | disposition home or self-care (01) ==
PROVIDERS: PCP Family Medicine; Visit Provider Family Medicine
DX: Z00.00 Encounter for general adult medical examination without abnormal findings (principal); D75.89 Other specified diseases of blood and blood-forming organs; I48.21 Permanent atrial fibrillation; M47.819 Spondylosis without myelopathy or radiculopathy, site unspecified; Z12.5 Encounter for screening for malignant neoplasm of prostate; Z12.11 Encounter for screening for malignant neoplasm of colon
CPT/HCPCS: 99397

== ENCOUNTER 2023-07-26 15:10 | Outpatient (REF) | payer MEDICARE, SELFPAY ==
--- NOTE | ~2023-07-26 | CT_ITS ---
EXAMINATION: CT ABDOMEN AND PELVIS WITHOUT CONTRAST CLINICAL INFORMATION: Abdominal aorta aneurysm. Evaluate size of aorta. Ultrasound abdomen previously showed small aneurysm but repeat showed no aneurysm, possibly technical issue with old study. COMPARISON: Aorta ultrasound from 05/13/2022 and 06/06/2023. MRI of lumbar spine from 09/11/2021. TECHNIQUE: Multidetector volumetric imaging was performed from the superior aspect of the liver through the pubic symphysis. Sagittal and coronal reformatted images were obtained on the technologist's workstation. This CT examination was performed using dose optimization techniques as appropriate, variously including the following: *Automated exposure control *Adjustment of mA and/or kV according to patient size (this includes techniques or standardized protocols for targeted exams where dose is matched to indication/reason for exam; i.e. extremities or head) *Use of iterative reconstruction technique DLP: 317 mGy-cm FINDINGS: LUNG BASES: Findings include linear opacity from minimal atelectasis in right lower lobe. No pulmonary consolidation or pleural effusion. HEPATOBILIARY: Liver has normal size and normal parenchymal attenuation. No focal liver lesion or intrahepatic ductal dilatation. Gallbladder is physiologically distended and without radiopaque stones or wall thickening. PANCREAS: Mildly atrophied. No edema, pancreatic ductal dilatation or mass. SPLEEN: Normal. ADRENAL GLANDS: Normal. KIDNEYS AND URETERS: The kidneys have normal size and cortical thickness. No perinephric edema or fluid collection. No urolithiasis or hydroureteronephrosis. BLADDER: The bladder is underdistended, nearly completely empty, and has a diffusely thickened wall. This could represent chronic detrusor muscle hypertrophy. No bladder stones. BOWEL AND PERITONEUM: Stomach is unremarkable. No dilated loops of bowel. The appendix is normal. There are diverticula of the descending and sigmoid colon without evidence of diverticulitis. No overt bowel wall thickening or mesenteric fat stranding. No free fluid or pneumoperitoneum. ABDOMINAL WALL: Unremarkable. VASCULATURE: Atherosclerotic calcification of the abdominal aorta, common iliac arteries and proximal renal arteries. The abdominal aorta is normal in size. At the level of the SMA, aorta is 2.5 cm transverse and 2.5 cm AP. The mid abdominal aorta is 2.3 cm transverse and 2.2 cm AP. The distal aorta is 2.1 cm transverse and 2 cm AP. The right and left common iliac arteries each measure up to 1.4 cm transverse diameter. LYMPH NODES: No pathologic sized lymph nodes in the abdomen or pelvis. No inguinal lymphadenopathy. PELVIC VISCERA: Prostate gland is mildly enlarged and median lobe of the gland protrudes into the bladder base. No pelvic free fluid. MUSCULOSKELETAL: No acute osseous abnormality. Chronic severe degenerative disc disease at L1-L2. There are Schmorl's nodes at several endplates of the lower thoracic and upper lumbar spine. No suspicious bone lesions. CT/CT abdomen pelvis wo IV con IMPRESSION: * Atherosclerosis of the abdominal aorta without aneurysm. * Diverticulosis of the descending and sigmoid colon without diverticulitis. * Prostate gland is mildly enlarged and urinary bladder has a diffusely thickened wall. This could represent chronic detrusor muscle hypertrophy.
== END 2023-07-26 15:11 | disposition home or self-care (01) ==
LOC: HO.CT 15:10
PROVIDERS: PCP Family Medicine; Visit Provider Internal Medicine Cardiovascular Disease
DX: I71.40 Abdominal aortic aneurysm, without rupture, unspecified (principal)
CPT/HCPCS: 74176

== ENCOUNTER 2023-10-26 10:38 | Outpatient (AMB) | payer MEDICARE, SELFPAY ==
[2023-10-26 10:53] VITALS: BP 120/74; PULSE 57; O2SAT 98; BMI 24.2
--- NOTE | 2023-10-26 10:53 | A.OFFPC_ITS ---
Vital Signs 10/26/23 10:53 Height 5 ft 7 in Weight 154 lb 4 oz BMI 24.2 BP 120/74 Blood Pressure Location Lt brachial Position Sitting Pulse 57 Pulse Source Pulse Oximeter Pulse Oximetry (%) 98 Oxygen Delivery Method Room Air Intake Visit Reasons: f/u chronic conditions, rescheduled from 09/13 Intake Note: Patient is here to follow up on chronic conditions, and he has concern of left elbow, tennis elbow condition. Allergies No Known Allergies Allergy (Verified 10/26/23 10:55) Medication List - Last Reconciled 10/26/23 by Bjorn Arauz MD apixaban (Eliquis) 5 mg PO BID bisacodyl (Dulcolax (bisacodyl)) 10 mg (2 x 5 mg) PO ONCE 1 day Ca carb-Ca gluc-Mg ox-Mg gluco 500 mg calcium -250 mg (Calcium Magnesium) tabs PO cholecalciferol (vitamin D3) (Vitamin D3) 25 mcg PO DAILY chromium picolinate 200 mcg PO DAILY diclofenac sodium 1% (Voltaren Arthritis Pain) 4 grams topical QID PRN 30 days lactobacillus combination no.4 (Probiotic) 3,000 mmu cells PO DAILY multivitamin 1 tab PO DAILY niacinamide 500 mg PO BID omega-3 fatty acids 500 mg PO DAILY omeprazole 20 mg PO DAILY@0630 polyethylene glycol 3350 (Miralax) 238 grams PO ONCE PRN 1 day saw palmetto 160 mg PO BID sildenafil 50 mg PO DAILY PRN tamsulosin (Flomax) 0.4 mg PO BID Tobacco use date assessed: 10/26/23 Fall risk assessment: No Falls in past year Last assessed Fall Risk: 10/26/23 HPI f/u chronic conditions, rescheduled from 09/13 HPI Details 73 y/o male presents to f/u chronic cond itions. Had seen arthritis center for his back and they had recommended PT. He reports L tennis elbow. [facility] Medical History AAA (abdominal aortic aneurysm) Aortic aneurysm Elevated transaminase level Lumbar radiculitis Surgical History History of tonsillectomy Family History Mother No problems noted. Father No problems noted. Social History Household Members: None Housing: Condominium Alcohol intake: former Patient Tobacco Use Status: Former Tobacco user Quit Date: 1980 Smoked: 10+/- e-Cigarette/Vaping Use: Never Used Second Hand Smoke Exposure: No service: No Current occupational status: retired Current occupational exposures/hazards: No Cognitive needs: No Hearing needs: No Vision needs: No Questionnaire Thrive Questionnaire Date Thrive assessed: 09/30/21 CHASE-7 AMB Questionnaire CHASE-7 Date CHASE - 7 assessed: 07/08/22 Source: Developed by Drs. Ezra Ramos, Ellie Mayberry, Dmitriy Rivas and colleagues, with an educational isa from [employer]. Review of Systems Const Denies chills, Denies fatigue, Denies fever(s), Denies headache(s) and Denies weakness ENT Denies dizziness and Denies headache(s) Card Denies chest pain, Denies lightheadedness, Denies dyspnea and Denies other (Pa lpitations) Resp Denies cough, Denies dyspnea, Denies wheezing and Denies other ( shortness of breath) Musc Denies numbness and Denies tingling Neuro Denies dizziness, Denies headache(s), Denies numbness, Denies tingling, Denies paresthesias and Denies weakness Psych Denies anxiety and Denies depression Endo Denies fatigue Aller/Immun Denies wheezing Physical exam (Primary Care) Vital Signs: Last Vital Signs Pulse 57 10/26/23 10:53 BP 120/74 10/26/23 10:53 Pulse Ox 98 10/26/23 10:53 Oxygen Delivery Method Room Air 10/26/23 10:53 BMI result Body Mass Index 24.2 Tobacco/Smoking Status: Tobacco use Status Tobacco use date assessed 10/26/23 10/26/23 10:56 Patient Tobacco Use Status Former Tobacco user 10/26/23 10:56 e-Cigarette/Vaping Use Never Used 10/26/23 10:56 Thrive Assessment: Date of Thrive Assessment Date Thrive assessed 09/30/21 10/26/23 10:56 Const General: no acute distress and well developed Nutritional Appearance: well nourished Orientation/consciousness: patient oriented x3 [facility] Head: Yes normocephalic and Yes atraumatic Eyes General: appearance normal, both eyes and all related structures Pupils: Equal, round and reactive pupils present EOM: EOMs intact bilaterally Resp Effort & Inspection: normal respiratory effort Auscultation: clear to auscultation bilaterally Cardio Rate: regular rate Rhythm: abnormal rhythm Heart sounds: S1 normal heart sound present, S2 normal heart sound present, no gallops, no murmurs and no rubs Neuro General: patient oriented x3 and gait normal Cranial nerves: Yes Equal, round and reactive pupils present Psych Affect: normal affect Assessment and Plan Assessment & Plan (1) Arthritis, low back: Code(s): M47.819 - Spondylosis without myelopathy or radiculopathy, site unspecified Plan: Fairly?well?controlled?with?Tylenol?and?topicals?as?well?as?PT?exercises?demonst rated?by?Rheumatology. Continue?exercises (2) Left tennis elbow: Code(s): M77.12 - Lateral epicondylitis, left elbow Plan: Advised?relative?rest Topical?NSAIDs-patient?still?has?some?diclofenac?gel. Ice/heat He?is?interested?in?a?referral?to?sports?Medicine?or?physiatry?and?is?heading?to ?[place]?for?the?next?3?months.??He?will?a?physicia n?down?there?and?I?will?send?a?referral. (3) Permanent atrial fibrillation: Code(s): I48.21 - Permanent atrial fibrillation Plan: Rate?controlled?and?taking?Eliquis?as?prescribed Stable Has?appointment?with?cardiology (4) Chest pain: Code(s): R07.9 - Chest pain, unspecified Plan: Discomfort?at?lateral?border?of?left?pectoralis?muscle. 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 He?will?stop?activity?and?Check?for?pectoralis?muscle?reproducibility. If?not?reproducible?and?pain?is?lasting?more?than?a?few?minutes.??He?will?go?to? the?ED. Follow-up?with?Cardiology?as?recommended Coding Level of Care Code Est Pt Level 3 (55636) Diagnoses Arthritis, low back M47.819 Left tennis elbow M77.12 Permanent atrial fibrillation I48.21 Chest pain R07.9
== END 2023-10-26 11:33 | disposition home or self-care (01) ==
PROVIDERS: PCP Family Medicine; Visit Provider Family Medicine
DX: M47.819 Spondylosis without myelopathy or radiculopathy, site unspecified (principal); M77.12 Lateral epicondylitis, left elbow; I48.21 Permanent atrial fibrillation; R07.9 Chest pain, unspecified
CPT/HCPCS: 99213

== ENCOUNTER 2024-04-30 11:32 | Outpatient (AMB) | payer MEDICARE, SELFPAY ==
--- NOTE | 2024-04-30 11:33 | A.OFFVIS_ITS ---
Intake Visit Reasons: 1y/BPH Intake Note: Patient presents today for a 1 year BPH follow-up: Meds- Sildenafil & Tamsulosin Allergies to Antibiotic- No Known Allergies Blood Thinner- Eliquis Post Void Residual: 58 mL Child Protective Services Social Worker Required: No Accompanied by: Self / Same As Patient Allergies No Known Allergies Allergy (Verified 04/30/24 11:34) Medication List - Last Reconciled 04/30/24 by Luis Fernando Cabral MD apixaban (Eliquis) 5 mg PO BID bisacodyl (Dulcolax (bisacodyl)) 10 mg (2 x 5 mg) PO ONCE 1 day Ca carb-Ca gluc-Mg ox-Mg gluco 500 mg calcium -250 mg (Calcium Magnesium) tabs PO cholecalciferol (vitamin D3) (Vitamin D3) 25 mcg PO DAILY chromium picolinate 200 mcg PO DAILY diclofenac sodium 1% (Voltaren Arthritis Pain) 4 grams topical QID PRN 30 days lactobacillus combination no.4 (Probiotic) 3,000 mmu cells PO DAILY multivitamin 1 tab PO DAILY niacinamide 500 mg PO BID omega-3 fatty acids 500 mg PO DAILY omeprazole 20 mg PO DAILY@0630 polyethylene glycol 3350 (Miralax) 238 grams PO ONCE PRN 1 day saw palmetto 160 mg PO BID sildenafil 50 mg PO DAILY PRN tamsulosin (Flomax) 0.4 mg PO BID HPI Comments Details: Ezra is a 73-year-old male who presents to the office for BPH and urinary hesitancy follow-up. He is here for 1 year follow-up. He is on Flomax 0.4 mg b.i.d.. And uses [id number] saw palmetto. He denies irritative voiding symptoms. He feels he is emptying his bladder adequately. Urinalysis negative leukocytes negative blood. Bladder scan PVR 58 mL. PSA reviewed 06/01/2023--1.68 ng/mL. Plan discussed to continue b.i.d. Flomax. Follow-up in 1 year PSA prior. Review of chart: 04/29/23-- He was initially evaluated on 09/24/22 for obstructive voiding symptoms, urinary hesitancy and postvoid dribbling. He has been using saw palmetto 160 mg twice a day. The patient states that his PCP started him on Flomax prior to his previous visit which he thinks is helping. In review of his chart he had performed PSA on 2021 that was 2.51. I discussed monitoring his PSA. The patient is taking Flomax and states benefits with the medication. The patient is due for PSA blood work in May which is ordered by his PCP. Evaluation today-- blood: negative, leukocytes: negative. Bladder scan PVR: 40 mL. AUA symptom score-- 17. Flomax 0.4 mg BID was ordered. Follow-up in a year [facility] Medical History AAA (abdominal aortic aneurysm) Lumbar radiculitis Aortic aneurysm Elevated transaminase level Surgical History History of tonsillectomy Family History Mother No problems noted. Father No problems noted. Social History Household Members: None Housing: Condominium Alcohol intake: former Patient Tobacco Use Status: Former Tobacco user Years Smoked: 10+/- e-Cigarette/Vaping Use: Never Used Second Hand Smoke Exposure: No service: No Current occupational status: retired Current occupational exposures/hazards: No Cognitive needs: No Hearing needs: No Vision needs: No Review of Systems Const All systems reviewed & are unremarkable except as noted in HPI and below Reports no additional complaints Eyes Reports no additional complaints ENT Reports no additional complaints Card Reports no additional complaints Resp Reports no additional complaints GI Reports no additional complaints Reports as per HPI Musc Reports no additional complaints Skin/Breast Reports system reviewed and no additional complaints, except as documented Neuro Reports no additional complaints Psych Reports no additional complaints Endo Reports no additional complaints Chidi/Lymph Reports no additional complaints Aller/Immun Reports no additional complaints Office Procedures Post Void Residual Post Residual Void Post Void Residual (PVR): 58 40699-[id number] Void Residual by ultrasound Results AMB Urinalysis, Automated UA Leukoctes 0 Gaudencio/uL Last Edit by LEOPOLDO Arriaga on 04/30/24 11:49 UA Nitrite Negative Last Edit by LEOPOLDO Arriaga on 04/30/24 11:49 UA Urobilinogen 0.2 mg/dL Last Edit by LEOPOLDO Arriaga on 04/30/24 11:4 9 UA Protein 0 mg/dL Last Edit by Jakub Rojo Mirlande on 04/30/24 11:49 UA pH 5.5 Last Edit by Jakub Rojo Mirlande on 04/30/24 11:49 UA Blood 0 Frederic/uL Last Edit by LEOPOLDO Arriaga on 04/30/24 11:49 UA Specific [place] 1.020 Last Edit by LEOPOLDO Arriaga on 04/30/24 11: 49 UA Ketone Negative Last Edit by Jakub Rojo Mirlande on 04/30/24 11:49 UA Bilirubin 0 mg/dL Last Edit by LEOPOLDO Arriaga on 04/30/24 11:49 UA Glucose 0 mg/dL Last Edit by LEOPOLDO Arriaga on 04/30/24 11:49 Results Reviewed Results Reviewed: Date of Service: 08/30/22 EXAMINATION: US ABDOMEN COMPLETE CLINICAL INFORMATION: Question liver disease, history of alcoholism. COMPARISON: US retroperitoneal limited (aorta) 05/13/2022. TECHNIQUE: Real-time imaging of the abdominal viscera. FINDINGS: PANCREAS: The head and the body of the pancreas is homogeneous echotexture. The tail is obscured by overlying gas. ABDOMINAL AORTA: The proximal and distal abdominal aorta are normal caliber. The midsegment is not visualized. INFERIOR VENA CAVA: Visualized portions are normal. LIVER: The liver is normal in size. The liver contour is normal. The liver is diffusely echogenic with heterogeneous echotexture. No focal hepatic lesion. There is no intrahepatic biliary duct dilatation seen. GALLBLADDER: Normal. The gallbladder is physiologically distended without evidence of stones, sludge, polyps, wall thickening or pericholecystic fluid. COMMON BILE DUCT: Normal in caliber measuring 0.3 cm in diameter. RIGHT KIDNEY: Normal. No hydronephrosis. No renal calculi or focal parenchymal lesions. The kidney measures 9.2 cm in maximum dimension. LEFT KIDNEY: Normal. No hydronephrosis. No renal calculi or focal parenchymal lesions. The kidney measures 8.9 cm in maximum dimension. SPLEEN: Normal. The spleen measures 9.1 cm in maximum dimension. FREE FLUID: None. IMPRESSION: Liver is diffusely echogenic with heterogeneous texture. No focal lesion. ? The rest of the abdominal ultrasound is grossly unremarkable. Assessment & Plan Assessment & Plan (1) Urinary hesitancy: Code(s): R39.11 - Hesitancy of micturition Category: Medical (2) BPH loc w urin obs/LUTS: Code(s): N40.1 - Benign prostatic hyperplasia with lower urinary tract symptoms Category: Medical Plan Plan discussed to continue b.i.d. Flomax. Follow-up in 1 year PSA prior. Orders: Orders AMB Urinalysis Automated Today Z13.9 - Encounter for screening, unspecified AMB Post Void Residual by ultrasound Today N39.8 - Other specified disorders of urinary system Medications: Refilled tamsulosin (Flomax) 0.4 mg PO BID 180 caps 3RF Patient Instructions: The patient had an opportunity to ask questions regarding treatment plan. The p atient expressed understanding and agreement with the above treatment plan. The patient is aware they should contact our office by phone for worsening of their current condition or the appearance of new symptoms. Compliance is encouraged with any medications and followup testing that is ordered. It is a privilege to be allowed the opportunity to participate in the urologic care of your patient. If you have any questions or concerns regarding treatment for the above conditions please do not hesitate to contact me. The office telephone contact is [phone]. This note is constructed in part using voice recognition software. While every effort has been made to ensure accuracy hawk missile system crewmember errors may have been included. Yours sincerely, Luis Fernando Cabral MD Coding Level of Care Code Est Pt Level 3 (01687) Complex EM visit Add On G2211 Diagnoses Urinary hesitancy R39.11 BPH loc w urin obs/LUTS N40.1 CPT Codes Post Residual Void - PVR CPT Code: 38374-Cxeo Void Residual by ultrasound ([id number])
== END 2024-04-30 12:00 | disposition home or self-care (01) ==
PROVIDERS: PCP Family Medicine; Visit Provider Urology
DX: N40.1 Benign prostatic hyperplasia with lower urinary tract symptoms (principal); R39.11 Hesitancy of micturition; Z13.9 Encounter for screening, unspecified
CPT/HCPCS: 99213; G2211

== ENCOUNTER → 2024-04-30 11:32 | Outpatient (BNVA) | payer MEDICARE, SELFPAY | PROVIDERS: PCP Family Medicine; Visit Provider Urology | DX: N40.1 Benign prostatic hyperplasia with lower urinary tract symptoms (principal); N13.8 Other obstructive and reflux uropathy; R39.11 Hesitancy of micturition | CPT/HCPCS: 51798; 81003; 99212 ==

== ENCOUNTER 2024-06-18 13:50 | Outpatient (REF) | payer MEDICARE, SELFPAY ==
[2024-06-18 17:31] LABS: MANUAL DIFF FLAG NO
[2024-06-18 17:39] LABS: Basophils Percent Auto 0.6 % (0-2); Eosinophils Absolute Auto 0.1 X10*3/uL (0.0-0.4); Eosinophils Percent Auto 1.9 % (0-4); Hematocrit 44.5 % (42.0-52.0); Hemoglobin 15.2 g/dl (14.0-18.0); Imm Gran Abs Auto 0.01 X10*3/uL (0.00-0.03); Imm Gran Pct Auto 0.2 % (0.0-0.4); Lymphocytes Absolute Auto 1.2 X10*3/uL (1.2-4.9); Lymphocytes Percent Auto 22.9 % (20-40); Mean Corpuscular HGB Conc 34.2 g/dl (31.0-36.0); Mean Corpuscular Hemoglobin 34.7 pg (27.0-33.0); Mean Corpuscular Volume 101.6 fL (80.0-98.0); Mean Platelet Volume 9.4 fL (9.4-12.4); Monocytes Absolute Auto 0.4 X10*3/uL (0.1-1.2); Monocytes Percent Auto 7.8 % (2-11); Neutrophils Absolute Auto 3.5 x10*3/uL (2.0-8.3); Neutrophils Percent Auto 66.6 % (45-73); Platelet Count 221 X10*3/uL (160-400); Red Blood Count 4.38 X10*6/uL (4.60-5.80); Red Cell Distribution Width 12.6 % (11.0-16.0); White Blood Count 5.3 X10*3/uL (4.8-10.8)
[2024-06-18 17:43] LABS: Appearance Urine Clear; Color Urine Dark Yellow; Glucose Urine UA Negative (Negative); Leukocyte Esterase Urine Negative (Negative); Nitrite Urine Negative (Negative); PH 5.5 (5.0-9.0); Specific Gravity - Urine 1.025 (1.005-1.025); Urine Blood Negative (Negative); Urine Ketones Trace mg/dL (Negative); Urine Protein Negative (Neg-Trace)
[2024-06-18 17:57] LABS: Alanine Aminotransferase 21 U/L (0-40); Albumin Level 4.2 g/dL (3.5-5.0); Alkaline Phosphatase 64 U/L (39-117); Anion Gap 12 (12-20); Aspartate Amino Transferase 19 U/L (5-37); Bilirubin Total 1.4 mg/dL (0.0-1.0); Blood Urea Nitrogen 20 mg/dL (9-16); Calcium 9.7 mg/dL (8.4-10.2); Carbon Dioxide 25 mmol/L (22-29); Chloride 107 mmol/L (96-108); Estimated Glomerular Filt Rate > 60; Glucose Fasting 95 mg/dL (60-99); Glucose Random 95 mg/dL (60-115); Potassium 4.5 mmol/L (3.3-5.1); Sodium 139 mmol/L (135-145); Total Protein 6.8 g/dL (6.5-8.0)
[2024-06-18 18:14] LABS: Creatinine Urine 133.68 mg/dL; Microalbum/Creatinine Ratio Ur 5.2 ug/mg cr (<30)
[2024-06-18 18:14] LABS: Prostate Specific Antigen Scr 1.63 ng/mL (<0.05-4.0)
[2024-06-18 18:20] LABS: TSH reflex Free T4 0.97 uIU/mL (0.32-4.0)
[2024-06-20 02:29] LABS: LDL Cholesterol Direct 95 mg/dL (<100)
== END 2024-06-18 13:51 | disposition home or self-care (01) ==
LOC: HO.WFDLDS 13:50
PROVIDERS: Visit Provider Family Medicine
DX: Z00.00 Encounter for general adult medical examination without abnormal findings (principal); I10 Essential (primary) hypertension; Z12.5 Encounter for screening for malignant neoplasm of prostate
CPT/HCPCS: 36415; 80053; 81003; 82043; 82570; 83721; 84153; 84443; 85025

== ENCOUNTER 2024-09-19 13:48 | Outpatient (AMB) | payer MEDICARE, SELFPAY ==
--- NOTE | 2024-09-19 14:00 | MHC.PC.OV ---
Vital Signs 09/19/24 14:04 Height 5 ft 7 in Weight 152 lb 8 oz BMI 23.9 BP 115/61 Blood Pressure Location Lt brachial Position Sitting Respiration 18 Pulse 59 Pulse Source Pulse Oximeter Temp 98.8 F Temp Source Temporal Artery Scan Pulse Oximetry (%) 97 Oxygen Delivery Method Room Air Intake Visit Reasons: CPE Intake Note: cpe Allergies No Known Allergies Allergy (Verified 09/19/24 14:01) Medication List - Last Reconciled 09/19/24 by Bjorn Arauz MD apixaban (Eliquis) 5 mg PO BID bisacodyl (Dulcolax (bisacodyl)) 10 mg (2 x 5 mg) PO ONCE 1 day calcium carb,gluc-mag gluc,ox 500 mg calcium- 250 mg (Calcium Magnesium) tabs PO cholecalciferol (vitamin D3) (Vitamin D3) 25 mcg PO DAILY chromium picolinate 200 mcg PO DAILY diclofenac sodium 1% (Voltaren Arthritis Pain) 4 grams topical QID PRN 30 days lactobacillus combination no.4 (Probiotic) 3,000 mmu cells PO DAILY multivitamin 1 tab PO DAILY niacinamide 500 mg PO BID omega-3 fatty acids 500 mg PO DAILY omeprazole 20 mg PO DAILY@0630 30 days polyethylene glycol 3350 (Miralax) 238 grams PO ONCE PRN 1 day saw palmetto 160 mg PO BID sildenafil 50 mg PO DAILY PRN tamsulosin (Flomax) 0.4 mg PO BID Tobacco use date assessed: 09/19/24 Fall risk assessment: No Falls in past year Last assessed Fall Risk: 09/19/24 Dental Screening Dental Screen Date: 09/19/24 Did you have a dental visit in the last 12 months?: Yes Did you have a dental problem in the last 6 months where you did not have access to dental care?: No Was dental information given to patient?: Patient has dentist HPI CPE HPI Details 74 y/o male presents for a CPE with f/u labs and health maintenance. Labs drawn 06/18/24. Reviewed labs with pt. LDL 95. PSA 1.63. His labs were fine. He notes he walks daily for exercise. HPI Comments History of Present Illness Details Documentation assistance for Bjorn Arauz MD, was provided by Bimal Harris, [employer] on 09/19/2024 at 2:14 PM EST. I, Dr. Arauz, have read, observed, and verified documentation. [facility] Medical History AAA (abdominal aortic aneurysm) Lumbar radiculitis Aortic aneurysm Elevated transaminase level Surgical History History of tonsillectomy Family History Mother No problems noted. Father No problems noted. Social History (Updated 09/19/24 @ 14:03 by Christine Lazaro [facility]) Household Members: None Housing: Condominium Alcohol intake: former Patient Tobacco Use Status: Former Tobacco user Years Smoked: 10+/- e-Cigarette/Vaping Use: Never Used Second Hand Smoke Exposure: No service: No Current occupational status: retired Current occupational exposures/hazards: No Cognitive needs: No Hearing needs: No Vision needs: No Questionnaire PHQ-9 Over the last 2 weeks, how often have you been bothered by any of the following problems? 1. Little interest or pleasure in doing things: not at all 2. Feeling down, depressed, or hopeless: not at all 3. Trouble falling or staying asleep, or sleeping too much: not at all 4. Feeling tired or having little energy: not at all 5. Poor appetite or overeating: not at all 6. Feeling bad about yourself - or that you are a failure or have let yourself or your family down: not at all 7. Trouble concentrating on things, such as reading the newspaper or watching television: not at all 8. Moving or speaking so slowly that other people could have noticed. Or the opposite - being so fidgety or restless that you have been moving around a lot more than usual: not at all 9. Thoughts that you would be better off or of hurting yourself in some way: not at all Total score: 0 Depression Screening Interpretation: Negative Depression Screening Done: Yes [id number] - PHQ-9 Billing: Yes Source: Developed by Drs. Ezra Ramos, Ellie Mayberry, Dmitriy Rivas and colleagues, with an educational isa from [employer]. Thrive Questionnaire Date Thrive assessed: 09/19/24 I am a: Patient What is your living situation today?: I have a steady place to live Within the past 12 months, did the food you bought not last and you didn't have the money to get more?: Never true Within the past 12 months, did you worry whether your food would run out before you got money to buy more?: Never true Do you have trouble paying for medicines?: No Do you have trouble getting transportation to medical appointments?: No Do you have trouble paying your heating and electricity bill?: No Do you have trouble taking care of your child, family member or friend?: No Do you have trouble with day-to-day activities such as bathing, preparing meals, shopping, managing finances, etc.?: No Are you currently unemployed and looking for a job?: No Are you interested in more education?: No Please select the resources that you would like help with: None Currently or been in a relationship where the following occur: No concerns reported THRIVE Score: 0 AUDIT C Alcohol Use Questionnaire (AUDIT-C) 1. How often do you have a drink containing alcohol?: Never 3. How often do you have six or more drinks on one occasion?: Never Total Score: 0 CHASE-7 AMB Questionnaire CHASE-7 Date CHASE - 7 assessed: 09/19/24 Feeling nervous, anxious, or on edge: 0 = Not at all Not being able to stop or control worryin = Not at all Worrying too much about different things: 0 = Not at all Trouble relaxin = Not at all Being so restless that it is hard to sit still: 0 = Not at all Becoming easily annoyed or irritable: 0 = Not at all Feeling afraid as if something awful might happen: 0 = Not at all Total CHASE-7 score (0-4 normal; 5-9 mild; 10-14 moderate; 15-21 severe): 0 Source: Developed by Drs. Ezra Ramos, Ellie Mayberry, Dmitriy Rivas and colleagues, with an educational isa from [employer]. CHASE-7 Assessment Billing CHASE-7 Assessment Tool: CHASE-7 Assessment 09133 Review of Systems Const Denies chills, Denies fatigue, Denies fever(s), Denies headache(s) and Denies weakness Eyes Denies change in vision ENT Denies dizziness, Denies headache(s), Denies hearing loss, Denies nasal congestion, Denies sinus pain, Denies sinus pressure and Denies sore throat Card Denies chest pain, Denies lightheadedness, Denies dyspnea and Denies other (palpitations) Resp Denies cough, Denies dyspnea and Denies wheezing GI Denies abdominal pain, Denies melena, Denies hematochezia, Denies change in bowel habits, Denies dyspepsia and Denies nausea Denies hematuria and Denies dysuria Musc Denies abnormal gait, Denies myalgias, Denies arthralgias, Denies numbness and Denies tingling Skin/Breast Denies rash, Denies unusual bruising and Denies wounds Neuro Denies abnormal gait, Denies dizziness, Denies headache(s), Denies memory loss, Denies numbness, Denies Sensory deficit (Neuro), Denies tingling and Denies weakness Psych Denies anxiety, Denies depression and Denies memory loss Endo Denies cold intolerance, Denies fatigue, Denies heat intolerance, Denies polydipsia and Denies polyuria Chidi/Lymph Denies easy bleeding and Denies easy bruising Aller/Immun Denies wheezing Physical exam (Primary Care) Vital Signs: Last Vital Signs Temp 98.8 F 09/19/24 14:04 Pulse 59 09/19/24 14:04 Resp 18 09/19/24 14:04 BP 115/61 09/19/24 14:04 Pulse Ox 97 09/19/24 14:04 Oxygen Delivery Method Room Air 09/19/24 14:04 BMI result Body Mass Index 23.9 Tobacco/Smoking Status: Tobacco use Status Tobacco use date assessed 09/19/24 09/19/24 14:07 Patient Tobacco Use Status Former Tobacco user 09/19/24 14:07 e-Cigarette/Vaping Use Never Used 09/19/24 14:07 PHQ-9: PHQ-9 Score PHQ-9: Total score 0 09/19/24 14:14 Depression Screening Interpretation: Negative Thrive Assessment: Date of Thrive Assessment Date Thrive assessed 09/19/24 09/19/24 14:07 Currently or been in a relationship where the following occur: No concerns reported Const General: no acute distress, well developed, alert and awake Nutritional Appearance: well nourished Orientation/consciousness: patient oriented x3 HENMT Head: Yes normocephalic and Yes atraumatic Ears: hearing grossly normal bilaterally and TM's normal bilaterally General nose exam: Normal external nose present and Normal nares present Mouth: Normal oral and palatal mucosa present and moist mucous membranes Teeth and gingiva: dentition normal Throat: Yes posterior oropharynx normal Eyes General: appearance normal, both eyes and all related structures Pupils: Equal, round and reactive pupils present and Pupil accommodation reflex normal EOM: EOMs intact bilaterally Neck Neck: Yes normal visual inspection, Yes no lymphadenopathy and Yes trachea midline Thyroid: Thyroid normal Carotids: no bruits Lymphatic: no lymphadenopathy noted Chest Chest palpation & inspection: normal inspection of the chest Resp Effort & Inspection: normal respiratory effort Auscultation: clear to auscultation bilaterally Cardio Rate: regular rate Rhythm: regular rhythm Heart sounds: S1 normal heart sound present, S2 normal heart sound present, no gallops, no murmurs and no rubs Bruits: no abdominal aortic bruits and no carotid bruits GI Palpation (GI): No Abdominal aortic bruit present, Soft to palpation, nontender, No hepatosplenomegaly present and No Rebound tenderness present Auscultation: normal bowel sounds General: Yes no CVA tenderness Back/Spine/Pelvis Back: no CVA tenderness Cervical Spine: cervical ROM normal and No Cervical spine tenderness Thoracic/Lumbar Spine: thoraco-lumbar ROM normal, No pain with thoraco-lumbar ROM, No thoracic spinal tenderness and No lumbar spinal tenderness Skin Lesions: no lesions Rashes: no rashes Trauma: no lacerations or abrasions Wounds: no wounds Nails: normal Neuro General: patient oriented x3 Cranial nerves: Yes Equal, round and reactive pupils present Cognition (Neuro): normal cognition Gait exam (Neuro): Normal gait present Motor exam (neuro): 5/5 motor strength present throughout Sensory Exam: No Sensory deficit (Neuro) Deep tendon reflexes (DTR's): Right patellar reflex intensity grade: 2+ and Left patellar reflex intensity grade: 2+ Extrem General: Yes normal to inspection and No edema Psych Appearance: grossly normal Affect: normal affect Attitude: cooperative Thought process: Normal thought process present Coding Level of Care Code Est Pt Level 3 (10147) Est Pt Prev Care >65y(51871) Diagnoses Adult general medical exam Z00.00 Sun-damaged skin L57.8 Permanent atrial fibrillation I48.21 BPH loc w urin obs/LUTS N40.1 Screening for colon cancer Z12.11 Screening for prostate cancer Z12.5 Low back pain M54.5 Additional Codes CHASE-7 Assessment Billing - CHASE-7 Assessment Tool: CHASE-7 Assessment 16007 ([id number]) Assessment & Plan Assessment & Plan (1) Adult general medical exam: Code(s): Z00.00 - Encounter for general adult medical examination without abnormal findings Category: Medical Plan: 4-year-old?male?presents?for?complete?physical?exam Encouraged?healthy?diet?with?active?lifestyle?and?plenty?of?exercise (2) Sun-damaged skin: Code(s): L57.8 - Other skin changes due to chronic exposure to nonionizing radiation Category: Medical Plan: Appears?to?have?actinic?keratosis?at?left?ear He?has?an?upcoming?appointment?with?Dermatology?and?I?recommended?he?have?this?looked?at. (3) Permanent atrial fibrillation: Code(s): I48.21 - Permanent atrial fibrillation Category: Medical Plan: Stable Rate?less?than?100?BP He?is?on?Eliquis (4) BPH loc w urin obs/LUTS: Code(s): N40.1 - Benign prostatic hyperplasia with lower urinary tract symptoms Category: Medical Plan: Followed?by?urology (5) Screening for colon cancer: Code(s): Z12.11 - Encounter for screening for malignant neoplasm of colon Category: Medical Plan: Patient?was?hesitant?regarding?colonoscopy?but?agrees?to?Cologuard?test He?does?have?history?of?polyps?so?may?be?positive. Patient?agrees?to?move?forward?with?colonoscopy?if?Cologuard?test?is?positive. Cologuard?test?ordered (6) Screening for prostate cancer: Code(s): Z12.5 - Encounter for screening for malignant neoplasm of prostate Category: Medical Plan: Followed?by?urology (7) Low back pain: Code(s): M54.5 - Low back pain Category: Medical Plan: Arthritis?and?low?back?pain. Avoiding?oral?NSAIDs?due?to?atrial?fibrillation?and?Eliquis Send?another?script?for?diclofenac?gel He?can?also?use?Tylenol Ice/heat Stretching?exercises If?not?improving?or?if?worsens?he?can?let?me?know?we?can?order?physical?therapy Plan Orders: Orders Complete Blood Count Auto Diff Today I48.20 - Chronic atrial fibrillation, unspecified, Z00.00 - Encounter for general adult medical examination without abnormal findings TSH reflex Free T4 Today I48.20 - Chronic atrial fibrillation, unspecified, Z00.00 - Encounter for general adult medical examination without abnormal findings UA and rflx microscopic Today I48.20 - Chronic atrial fibrillation, unspecified, Z00.00 - Encounter for general adult medical examination without abnormal findings Comprehensive Met. Panel Today I48.20 - Chronic atrial fibrillation, unspecified Microalbumin, Random (w Creat) Today I10 - Essential (primary) hypertension, I48.20 - Chronic atrial fibrillation, unspecified Referrals Cologuard Test Z12.11 - Encounter for screening for malignant neoplasm of colon, Z12.12 - Encounter for screening for malignant neoplasm of rectum Medications: Refilled diclofenac sodium 1% (Voltaren Arthritis Pain) 4 grams topical QID 30 days PRN 100 grams 3RF pain
[2024-09-19 14:04] VITALS: BP 115/61; PULSE 59; RESP 18; TEMP 37.1; O2SAT 97; BMI 23.9
== END 2024-09-19 14:28 | disposition home or self-care (01) ==
PROVIDERS: PCP Family Medicine; Visit Provider Family Medicine
DX: Z00.00 Encounter for general adult medical examination without abnormal findings (principal); L57.8 Other skin changes due to chronic exposure to nonionizing radiation; I48.21 Permanent atrial fibrillation; N40.1 Benign prostatic hyperplasia with lower urinary tract symptoms; M54.50 Low back pain, unspecified; Z12.11 Encounter for screening for malignant neoplasm of colon; Z12.5 Encounter for screening for malignant neoplasm of prostate

== ENCOUNTER → 2024-09-19 13:48 | Outpatient (BNVA) | payer MEDICARE, SELFPAY | PROVIDERS: PCP Family Medicine; Visit Provider Family Medicine | DX: Z00.01 Encounter for general adult medical examination with abnormal findings (principal); L57.8 Other skin changes due to chronic exposure to nonionizing radiation; I48.21 Permanent atrial fibrillation; N40.1 Benign prostatic hyperplasia with lower urinary tract symptoms; N13.8 Other obstructive and reflux uropathy; M54.50 Low back pain, unspecified; Z79.01 Long term (current) use of anticoagulants | CPT/HCPCS: 96127; 99212; 99397 ==

== ENCOUNTER 2024-10-22 10:58 | Outpatient (AMB) | payer MEDICARE, SELFPAY ==
[2024-10-22 11:01] VITALS: BP 110/60; PULSE 53; BMI 23.8
--- NOTE | 2024-10-22 11:01 | MHC.OFFVIS ---
Vital Signs 10/22/24 11:01 Height 5 ft 7 in Weight 152 lb 1.903 oz BMI 23.8 BP 110/60 Blood Pressure Location Lt brachial Position Sitting Pulse 53 Pulse Source Monitor Intake Visit Reasons: 1 yr f/up Intake Note: 1 yr f/up Environmental Education Specialist Required: No Accompanied by: Self / Same As Patient Allergies No Known Allergies Allergy (Verified 09/19/24 14:01) Medication List - Last Reconciled 10/22/24 by Burt Carreon MD apixaban (Eliquis) 5 mg PO BID bisacodyl (Dulcolax (bisacodyl)) 10 mg (2 x 5 mg) PO ONCE 1 day calcium carb,gluc-mag gluc,ox 500 mg calcium- 250 mg (Calcium Magnesium) tabs PO cholecalciferol (vitamin D3) (Vitamin D3) 25 mcg PO DAILY chromium picolinate 200 mcg PO DAILY diclofenac sodium 1% (Voltaren Arthritis Pain) 4 grams topical QID PRN 30 days lactobacillus combination no.4 (Probiotic) 3,000 mmu cells PO DAILY multivitamin 1 tab PO DAILY niacinamide 500 mg PO BID omega-3 fatty acids 500 mg PO DAILY omeprazole 20 mg PO DAILY@0630 30 days polyethylene glycol 3350 (Miralax) 238 grams PO ONCE PRN 1 day saw palmetto 160 mg PO BID sildenafil 50 mg PO DAILY PRN tamsulosin (Flomax) 0.4 mg PO BID HPI Comments Details: 74-year-old gentleman who was seen in the hospital with vasovagal syncope and new diagnosis of atrial fibrillation. 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 He was noticed to have AFib with slow ventricular response. Inpatient workup including echocardiography did not reveal any significant issues. He was asymptomatic from atrial fibrillation but due to his age and having an abdominal aortic aneurysm we decided to start him on anticoagulation. He has been on Eliquis since then. No bleeding issues with that. He had a Holter monitor which showed slow heart rates no significant pauses or tachycardia. He also had ankle-brachial index assessment which did not show any resting abnormality. His ABIs were high pointing towards atherosclerotic calcification. On follow-up he has been doing well. No syncope. No chest pain shortness of breath. 10/22/2024: He is here for follow-up. Continues to take Eliquis without any problem. No chest pain or palpitations. He gets short of breath when he is going uphill especially when he is playing golf. He is exercising regularly and does get some dyspnea with exercise especially when he does cardio. PENDING SALE TO [facility] Medical History AAA (abdominal aortic aneurysm) Lumbar radiculitis Aortic aneurysm Elevated transaminase level Surgical History History of tonsillectomy Family History Mother No problems noted. Father No problems noted. Social History Household Members: None Housing: Condominium Alcohol intake: former Patient Tobacco Use Status: Former Tobacco user Years Smoked: 10+/- e-Cigarette/Vaping Use: Never Used Second Hand Smoke Exposure: No service: No Current occupational status: retired Current occupational exposures/hazards: No Cognitive needs: No Hearing needs: No Vision needs: No Review of Systems Const Denies chills, Denies fatigue, Denies fever(s), Denies frequent falls, Denies weakness, Denies weight gain and Denies weight loss ENT Denies dizziness Card Denies chest pain, Denies leg edema, Denies lightheadedness, Denies palpitations, Denies dyspnea and Denies dyspnea on exertion Resp Denies cough, Denies dyspnea and Denies dyspnea on exertion GI Denies hematochezia Musc Denies abnormal gait, Denies muscle weakness, Denies numbness, Denies radiating pain into limb and Denies tingling Neuro Denies abnormal gait, Denies dizziness, Denies frequent falls, Denies numbness, Denies tingling and Denies weakness Endo Denies fatigue and Denies palpitations Physical Exam Vital Signs: Last Vital Signs Pulse 53 10/22/24 11:01 BP 110/60 10/22/24 11:01 BMI result Body Mass Index 23.8 GENERAL APPEARANCE: in no acute distress, pleasant. NECK: no carotid bruit, no jugular venous distention. SKIN: no suspicious lesions, warm and dry. HEART: no murmurs, irregular rate and rhythm. Bradycardic. LUNGS: clear to auscultation bilaterally. ABDOMEN: soft, nontender. EXTREMITIES: no edema. PERIPHERAL PULSES: equal. NEUROLOGIC: No gross deficits, AAO X 3 Office Procedures EKG Details: Atrial fibrillation 53 beats per minute, normal axis, QTC 388 milliseconds. [id number], Complete Assessment & Plan Assessment & Plan (1) Permanent atrial fibrillation: Code(s): I48.21 - Permanent atrial fibrillation Category: Medical Plan Pleasant 74 year gentleman who is here for follow-up. He has permanent atrial fibrillation. 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 Overall he has atrial fibrillation with slow ventricular response. He has no symptoms from atrial fibrillation currently. No dizziness or lightheadedness or any syncopal episode in the past. Continue Eliquis as before. We will repeat echocardiography to reassess LVEF as well as assess for atrial ventricular valvular regurgitation. Thank you for allowing me to participate in the care of your patient. Please feel free to contact me if you have any questions. Orders: Orders CA echo transthoracic complete Today I48.21 - Permanent atrial fibrillation Coding Level of Care Code Est Pt Level 4 (45903) Diagnoses Permanent atrial fibrillation I48.21 CPT Codes EKG - CPT: 31502-[id number], Complete ([id number])
== END 2024-10-22 11:23 | disposition home or self-care (01) ==
PROVIDERS: PCP Family Medicine; Visit Provider Internal Medicine Cardiovascular Disease
DX: I48.21 Permanent atrial fibrillation (principal)
CPT/HCPCS: 93010; 99214

== ENCOUNTER → 2024-10-22 10:58 | Outpatient (BNVA) | payer MEDICARE, SELFPAY | PROVIDERS: PCP Family Medicine; Visit Provider Internal Medicine Cardiovascular Disease | DX: I48.21 Permanent atrial fibrillation (principal) | CPT/HCPCS: 93005; 99212 ==

== ENCOUNTER → 2024-11-07 12:55 | Outpatient (REF) | payer MEDICARE, SELFPAY ==
--- NOTE | 2024-11-07 13:01 | CA_ITS ---
Transthoracic Echocardiogram Patient (Last, First, Middle): Ezra Roberts, Gender: Male Date of : 1950 Age: 74 Procedure Date: 11/07/2024 Procedure Type: Transthoracic Echocardiogram Location: OP Height: 167.64 cm Weight: 65.77 kg BSA: 1.74 m2 Heart Rate: 57 bpm BP: 110 / 60 mmHg Hand Laster: ROSIO Referring MD: Burt Carreon MD Cna: Neri Ortega MD Symptoms: I48.21 - Permanent atrial fibrillation Study Quality: Adequate ECG Rhythm: Atrial flutter Conclusions: - 1. Low normal LV ejection fraction 50-55% 2. Biatrial enlargement, right greater than left 3. Normal cardiac valvular Dopplers 4. Normal RV systolic pressure 5. No gross pericardial eff Findings Left Ventricle Normal left ventricular cavity size. There is normal left ventricular wall thickness. The left ventricular systolic function is low normal. The visually estimnated ejection fraction is between 50-55%. Diastolic function is indeterminate on the basis of available data. Right Ventricle Normal right ventricular cavity size. There is normal right ventricular systolic function. Atria The left atrium is mildly dilated. There is no evidence of interatrial shunt. The right atrium is moderately dilated. Aortic Valve Normal aortic valve structure and function. There is no aortic valve stenosis. There is no aortic valve regurgitation. Mitral Valve Normal mitral valve structure and function. There is trace mitral valve regurgitation. There is no mitral valve stenosis. Pulmonic Valve The pulmonic valve is likely normal. Tricuspid Valve Normal tricuspid valve structure. There is trace tricuspid valve regurgitation. The right ventricular systolic pressure is normal. The right ventricular systolic pressure is 26 mmHg. Normal right atrial pressure. There is no evidence of pulmonary hypertension. Great Vessels The pulmonary artery was not well visualized. There is no dilatation of the ascending aorta measuring 3.30 cm. Venous The inferior vena cava is normal in size and collapses greater than 50% with inspiration. Pericardium/Pleural There is no evidence of pericardial effusion. Prior Study Comparison Changes noted compared to prior study dated: 09/26/2021. LV systolic function has marginally reduced Measurements 2D Linear Measurements IVSd: 0.97 0.6-0.9/0.6-1.0 cm LVIDd: 5.15 3.9-5.3/4.2-5.9 cm LVIDd Index: 2.96 2.4-3.2/2.2-3.1 cm/m2 LVIDs: 3.95 2.0-3.6 cm LVPWd: 0.74 0.7-1.1 cm LA Diam: 3.90 2.7-3.8/3.0-4.0 cm LAIDs Index: 2.24 1.5-2.3 cm/m2 LV Mass: 192.51 67-162/88-224 g LV Mass Index: 110.64 43-95/49-115 g/m2 LVOT Diam: 2.10 3.0+(-)1.3 cm 2D Systolic Function EF 4C: 49.60 >55% EF 2C: 56.80 >55% EF BiP: 52.50 >55% Mitral Valve MV Pk E: 0.96 Aortic Valve AoV Pk Ap: 1.15 AoV Pk Grad: 5.00 JUSTICE: 2.16 LVOT LVOT Pk Ap: 0.72 LVOT Mn Ap: 0.56 LVOT VTI: 0.16 LVOT Pk Grad: 2.00 LVOT Mn Grad: 1.00 LVOT Diam: 2.10 LVOT Area: 3.46 Diastolic Function MV Pk E: 0.96 Right Ventricle TAPSE (mm): 20.00 TVS' Ap: 9.60 Tricuspid Valve TR Pk Ap: 2.10 TR Pk Grad: 18.00 RA Press: 8.00 RVSP: 26.00 Great Vessels Aorta Sinus of Valsalva: 3.00 2.0-3.5 cm Ao Asc: 3.30 2.1-3.4 cm Pulmonary Veins Pulm Vein S/D 0.60 Pulmonary Valve PV Pk Ap: 0.68 Peak PV Grad: 2.00 Updated in Other Vendor System with Status of Final Neri Ortega MD electronically signed on 11/08/2024 4:25:08 PM with status of Final
== END ==
LOC: HO.CARD 12:55
PROVIDERS: PCP Family Medicine; Visit Provider Internal Medicine Cardiovascular Disease
DX: I48.21 Permanent atrial fibrillation (principal)
CPT/HCPCS: 93306

== ENCOUNTER → 2024-11-07 13:01 | Outpatient (BNV) | payer MEDICARE, SELFPAY | PROVIDERS: PCP Family Medicine; Visit Provider Internal Medicine Cardiovascular Disease | DX: I51.7 Cardiomegaly (principal) | CPT/HCPCS: 93306 ==

== ENCOUNTER 2025-04-03 11:44 | Outpatient (AMB) | payer MEDICARE, SELFPAY ==
--- NOTE | 2025-04-03 12:03 | A.OFFPC_ITS ---
Vital Signs 04/03/25 12:10 Respiration 14 Pulse 61 Pulse Source Pulse Oximeter Temp 97.4 F Temp Source Oral Pulse Oximetry (%) 96 Oxygen Delivery Method Room Air Intake Visit Reasons: f/u chronic conditions - see comments Intake Note: patient is scheduled for chronic pain in the lower back area Allergies No Known Allergies Allergy (Verified 04/03/25 12:05) Tobacco use date assessed: 04/03/25 Fall risk assessment: No Falls in past year Dental Screening Dental Screen Date: 04/03/25 Did you have a dental visit in the last 12 months?: Yes Did you have a dental problem in the last 6 months where you did not have access to dental care?: No HPI f/u chronic conditions - see comments HPI Details 74 y/o male presents to f/u chronic cond itions. Hx of chronic AFib, AAA. Follows up with cardiology. No recent labs to review. Continues to be on eliquis. He tries to eat a healthy diet and exercises. Reports low back pain. [facility] Medical History AAA (abdominal aortic aneurysm) Lumbar radiculitis Aortic aneurysm Elevated transaminase level Surgical History History of tonsillectomy Family History Mother No problems noted. Father No problems noted. Social History Household Members: None Housing: Condominium Alcohol intake: former Patient Tobacco Use Status: Former Tobacco user Years Smoked: 10+/- e-Cigarette/Vaping Use: Never Used Second Hand Smoke Exposure: No service: No Current occupational status: retired Current occupational exposures/hazards: No Cognitive needs: No Hearing needs: No Vision needs: No Questionnaire PHQ-9 Over the last 2 weeks, how often have you been bothered by any of the following problems? 1. Little interest or pleasure in doing things: not at all 2. Feeling down, depressed, or hopeless: not at all 3. Trouble falling or staying asleep, or sleeping too much: not at all 4. Feeling tired or having little energy: not at all 5. Poor appetite or overeating: not at all 6. Feeling bad about yourself - or that you are a failure or have let yourself or your family down: not at all 7. Trouble concentrating on things, such as reading the newspaper or watching television: not at all 8. Moving or speaking so slowly that other people could have noticed. Or the opposite - being so fidgety or restless that you have been moving around a lot more than usual: not at all 9. Thoughts that you would be better off or of hurting yourself in some way: not at all Total score: 0 Source: Developed by Drs. Ezra Ramos, Ellie Mayberry, Dmitriy Rivas and colleagues, with an educational isa from [employer]. Thrive Questionnaire Date Thrive assessed: 03/27/25 I am a: Patient What is your living situation today?: I have a steady place to live Within the past 12 months, did the food you bought not last and you didn't have the money to get more?: Never true Within the past 12 months, did you worry whether your food would run out before you got money to buy more?: Never true Do you have trouble paying for medicines?: No Do you have trouble getting transportation to medical appointments?: No Do you have trouble paying your heating and electricity bill?: No Do you have trouble taking care of your child, family member or friend?: No Do you have trouble with day-to-day activities such as bathing, preparing meals, shopping, managing finances, etc.?: No Are you currently unemployed and looking for a job?: No Are you interested in more education?: No Please select the resources that you would like help with: None Currently or been in a relationship where the following occur: No concerns reported THRIVE Score: 0 AUDIT C Alcohol Use Questionnaire (AUDIT-C) 1. How often do you have a drink containing alcohol?: Never Total Score: 0 CHASE-7 AMB Questionnaire CHASE-7 Date CHASE - 7 assessed: 04/03/25 Feeling nervous, anxious, or on edge: 0 = Not at all Not being able to stop or control worryin = Not at all Worrying too much about different things: 0 = Not at all Trouble relaxin = Not at all Being so restless that it is hard to sit still: 0 = Not at all Becoming easily annoyed or irritable: 0 = Not at all Feeling afraid as if something awful might happen: 0 = Not at all Total CHASE-7 score (0-4 normal; 5-9 mild; 10-14 moderate; 15-21 severe): 0 Source: Developed by Drs. Ezra Ramos, Ellie Mayberry, Dmitriy Rivas and colleagues, with an educational isa from [employer]. CHASE-7 Assessment Billing CHASE-7 Assessment Tool: CHASE-7 Assessment 25995 Review of Systems Const Denies chills, Denies fatigue, Denies fever(s), Denies headache(s) and Denies weakness ENT Denies dizziness and Denies headache(s) Card Denies dyspnea Resp Denies cough, Denies dyspnea, Denies wheezing and Denies other (shortness of br eath) Musc Reports back pain, Denies numbness and Denies tingling Neuro Denies dizziness, Denies headache(s), Denies numbness, Denies tingling and Den ies weakness Psych Denies anxiety and Denies depression Endo Denies fatigue Aller/Immun Denies wheezing Physical exam (Primary Care) Vital Signs: Last Vital Signs Temp 97.4 F 04/03/25 12:10 Pulse 61 04/03/25 12:10 Resp 14 04/03/25 12:10 Pulse Ox 96 04/03/25 12:10 Oxygen Delivery Method Room Air 04/03/25 12:10 Tobacco/Smoking Status: Tobacco use Status Tobacco use date assessed 04/03/25 04/03/25 12:09 Patient Tobacco Use Status Former Tobacco user 04/03/25 12:04 e-Cigarette/Vaping Use Never Used 04/03/25 12:04 PHQ-9: PHQ-9 Score PHQ-9: Total score 0 04/03/25 12:35 Thrive Assessment: Date of Thrive Assessment Date Thrive assessed 03/27/25 04/03/25 12:04 Currently or been in a relationship where the following occur: No concerns reported Const General: well developed; No acute distress Nutritional Appearance: well nourished Orientation/consciousness: patient oriented x3 HENMT Head: Yes normocephalic and Yes atraumatic Eyes General: appearance normal, both eyes and all related structures Pupils: Equal, round and reactive pupils present EOM: EOMs intact bilaterally Resp Effort & Inspection: normal respiratory effort Neuro General: patient oriented x3 and gait normal Cranial nerves: Yes Equal, round and reactive pupils present Psych Affect: normal affect Coding Level of Care Code Est Pt Level 4 (35579) Diagnoses Permanent atrial fibrillation I48.21 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 Recent?echocardiogram?shows?low?normal?ejection?fraction?unchanged?from?echo?in? 2020.??Stable Follow-up?with?Cardiology?as?recommended (2) Current use of custodial anticoagulation: Code(s): Z79.01 - watermelon inspector (current) use of anticoagulants Category: Medical Plan: As above (3) Low back pain: Code(s): M54.5 - Low back pain Category: Medical Plan: Ongoing?low?back?pain?secondary?to?arthritis Diclofenac?gel?helps?a?little?and?he?can?continue?this Can?not?use?oral?NSAIDs?due?to?Eliquis Continue?exercises?to?keep?core?and?back?muscles?strong Ice/heat Call?or?return?to?office?if?worsening (4) History of colon polyps: Code(s): Z86.010 - Personal history of colon polyps Category: Medical Plan: Recent?Cologuard?negative Will?continue?screening?Q?3?years
[2025-04-03 12:10] VITALS: PULSE 61; RESP 14; TEMP 36.3; O2SAT 96
== END 2025-04-03 12:49 | disposition home or self-care (01) ==
LOC: HO.HMCFM 11:44
PROVIDERS: PCP Family Medicine; Visit Provider Family Medicine
DX: I48.21 Permanent atrial fibrillation (principal); Z79.01 Long term (current) use of anticoagulants; M54.50 Low back pain, unspecified; Z86.0100 Personal history of colon polyps, unspecified

== ENCOUNTER → 2025-04-03 11:44 | Outpatient (BNVA) | payer MEDICARE, SELFPAY | PROVIDERS: PCP Family Medicine; Visit Provider Family Medicine | DX: I48.21 Permanent atrial fibrillation (principal); M54.50 Low back pain, unspecified; Z79.01 Long term (current) use of anticoagulants; Z86.0100 Personal history of colon polyps, unspecified | CPT/HCPCS: 96127; 99212 ==

== ENCOUNTER 2025-06-21 13:07 | Outpatient (AMB) | payer MEDICARE, SELFPAY ==
--- OUTSIDE RECORDS SUMMARY | 2025-06-21 13:10 | XMS_ITS | Clinical Summary ---
Author Organization [facility] Address [address] [place] [id number] Phone Care Team Providers Care Lawn Care Professional Name Role Phone David Shell MD Primary Care Provider + Allergies No known active allergies Medications omeprazole (PRILOSEC) 20 MG capsule omeprazole Active raNITIdine (ZANTAC) 150 MG tablet Take 150 mg by mouth nightly at bedtime. Active Social History Tobacco Use Types Packs/Day Years Used Date Smoking Tobacco: Former Smokeless Tobacco: Never Alcohol Use Standard Drinks/Week Comments Yes 4 (1 standard drink = 0.6 oz pur e alcohol) Education Answer Date Recorded Are you interested in more education? Not on mitch e 03/25/2023 Are you concerned about learning? Not on file 03/25/2023 No 03/25/2023 No 03/25/2023 Digital Access Answer Date Recorded No 04/23/2023 No 04/23/2023 Reliable internet access at home? Not on file 04/23/2023 Device with a working camera? Not on file Sex and Gender Information Value Date Recorded Sex Assigned at Not on file Legal Sex Male 10:02 PM EDT Gender Identity Not on file Sexual Orientation Not on file Last Filed Vital Signs Vital Sign Reading Time Taken Comments Blood Pressure 134/86 04/20/2019 10:54 AM EDT Pulse 61 04/20/2019 10:10 AM EDT Temperature 36 C (96.8 F) 04/20/2019 10:45 AM EDT Respiratory Rate 20 04/20/2019 10:54 AM EDT Oxygen Saturation 96% 04/20/2019 10:54 AM EDT Inhaled Oxygen Concentration - - Weight 65.8 kg (145 lb) 04/20/2019 10:10 AM EDT Height 170.2 cm (5' 7 ) 04/20/2019 10:10 AM EDT Body Mass Index 22.71 04/20/2019 10:10 AM EDT Plan of Treatment Health Maintenance Due Date Last Done Comments Adult Td,Tdap Booster 1950 LIPID PANEL 1950 DEPRESSION SCREENING 1962 SMOKING Hx and SMOKELESS TOB ACCO SCREENING 1963 HEPATITIS C SCREENING 1968 COLOGUARD 1995 COLONOSCOPY 1995 COLORECTAL CANCER SCREENING 1995 FIT TEST 1995 FOBT 1995 SIGMOIDOSCOPY 1995 VIRTUAL COLONOSCOPY 1995 PNEUMOCOCCAL VACCINES (50+ y ears) (2 of 2 - PCV) 09/18/2020 09/18/2019 ZOSTER VACCINES (2 of 2) 11/02/2020 09/07/2020 COVID-19 VACCINE (2 - 2023-2 5 season) 2024 10/13/2021 RSV VACCINE (1 - 1-dose 75+ series) 2025 HEPATITIS A VACCINES Aged Out No long er eligible based on patient's age to complete this topic HIB VACCINES Aged Out No longer eligi ble based on patient's age to complete this topic MENINGOCOCCAL VACCINES (ACWY) Aged Out No longer eligible based on patient's age to complete this topic MENINGOCOCCAL VACCINES (B) Aged Out N o longer eligible based on patient's age to complete this topic Medical Devices Not on file [place] [address] [place] [address] MEDICARE REPLACEMENT MEDICARE REPLACEMENT MEDICARE REPLACEMENT [place] [id number] [facility] MEDICARE REPLACEMENT [facility] MEDICARE REPLACEMENT [facility] MEDICARE REPLACEMENT [place] [id number] [facility] MEDICARE REPLACEMENT Care Teams Lawn Care Professional Relationship Specialty Start Date End Date David Shell MD [address] [id number] PCP - General Internal Medicine 04/12/19 Additional Source Comments The information contained in this document represents components of the legal health record. It is not the complete legal health record.[facility]
--- NOTE | 2025-06-21 13:15 | MHC.OFFVIS ---
Intake Visit Reasons: 1y/PSA Intake Note: Patient presents today for a 1 year follow-up/PSA 06/18 PSA: 1.37 Urology Meds- Sildenafil & Tamsulosin Allergies to Antibiotic- No Known Allergies Blood Thinner- Eliquis PVR:22ml Accompanied by: Self / Same As Patient Allergies No Known Allergies Allergy (Verified 06/21/25 13:23) HPI Comments Details: 06/21/25 History of Present Illness - The patient is a 75-year-old male presenting for a 1-year follow-up for Benign Prostatic Hyperplasia (BPH) management. - The patient has been on tamsulosin (Flomax) twice daily for BPH. - No issues with urination, such as burning or hematuria, were reported. - PSA levels are monitored annually to assess prostate health. - The last PSA test was conducted in June 18, 2024--1.63. Results - Labs: PSA --06/18/24--1.63 ng/mL. Plan - Continue tamsulosin Flomax) twice daily for BPH management. - Cont PSA screening - Schedule a follow-up appointment in one year to reassess BPH management and PSA levels. 04/30/24--Ezra is a 73-year-old male who presents to the office for BPH and urinary hesitancy follow-up. He is here for 1 year follow-up. He is on Flomax 0.4 mg b.i.d.. And uses wlka-rdp-szogzuj saw palmetto. He denies irritative voiding symptoms. He feels he is emptying his bladder adequately. Urinalysis negative leukocytes negative blood. Bladder scan PVR 58 mL. PSA reviewed 06/01/2023--1.68 ng/mL. Plan discussed to continue b.i.d. Flomax. Follow-up in 1 year PSA prior. 04/29/23--He was initially evaluated on 09/24/22 for obstructive voiding symptoms, urinary hesitancy and postvoid dribbling. He has been using saw palmetto 160 mg twice a day. The patient states that his PCP started him on Flomax prior to his previous visit which he thinks is helping. In review of his chart he had performed PSA on 2021 that was 2.51. I discussed monitoring his PSA. The patient is taking Flomax and states benefits with the medication. The patient is due for PSA blood work in May which is ordered by his PCP. Evaluation today-- blood: negative, leukocytes: negative. Bladder scan PVR: 40 mL. AUA symptom score-- 17. Flomax 0.4 mg BID was ordered. Follow-up in a year [facility] Medical History AAA (abdominal aortic aneurysm) Lumbar radiculitis Aortic aneurysm Elevated transaminase level Surgical History History of tonsillectomy Family History Mother No problems noted. Father No problems noted. Social History Household Members: None Housing: Condominium Alcohol intake: former Patient Tobacco Use Status: Former Tobacco user Years Smoked: 10+/- e-Cigarette/Vaping Use: Never Used Second Hand Smoke Exposure: No service: No Current occupational status: retired Current occupational exposures/hazards: No Cognitive needs: No Hearing needs: No Vision needs: No Review of Systems Const All systems reviewed & are unremarkable except as noted in HPI and below Reports no additional complaints Eyes Reports no additional complaints ENT Reports no additional complaints Card Reports no additional complaints Resp Reports no additional complaints GI Reports no additional complaints Reports as per HPI Musc Reports no additional complaints Skin/Breast Reports system reviewed and no additional complaints, except as documented Neuro Reports no additional complaints Psych Reports no additional complaints Endo Reports no additional complaints Chidi/Lymph Reports no additional complaints Aller/Immun Reports no additional complaints Assessment & Plan Assessment & Plan (1) Screening for prostate cancer: Code(s): Z12.5 - Encounter for screening for malignant neoplasm of prostate Category: Medical (2) Urinary hesitancy: Code(s): R39.11 - Hesitancy of micturition Category: Medical (3) BPH loc w urin obs/LUTS: Code(s): N40.1 - Benign prostatic hyperplasia with lower urinary tract symptoms Category: Medical Plan Plan - Continue tamsulosin Flomax) twice daily for BPH management. - Cont PSA screening - Schedule a follow-up appointment in one year to reassess BPH management and PSA levels. Orders: Orders PSA,Total (Free>4and<10) 06/21/25 Z12.5 - Encounter for screening for malignant neoplasm of prostate Patient Instructions: The patient had an opportunity to ask questions regarding treatment plan. The patient expressed understanding and agreement with the above treatment plan. The patient is aware they should contact our office by phone for worsening of their current condition or the appearance of new symptoms. Compliance is encouraged with any medications and followup testing that is ordered. It is a privilege to be allowed the opportunity to participate in the urologic care of your patient. If you have any questions or concerns regarding treatment for the above conditions please do not hesitate to contact me. The office telephone contact is [phone]. This note is constructed in part using voice recognition software. While every effort has been made to ensure accuracy clinical medical transcriptionist errors may have been included. Yours sincerely, Luis Fernando Cabral MD Scribe Plan - Not visible on output: Patient was informed and verbally consented to the use of an ambient scribe for clinic note documentation during this visit. Coding Level of Care Code Est Pt Level 3 (49837) Diagnoses Screening for prostate cancer Z12.5 Urinary hesitancy R39.11 BPH loc w urin obs/LUTS N40.1
== END 2025-06-21 13:52 | disposition home or self-care (01) ==
LOC: HO.HUSH 13:08
PROVIDERS: PCP Family Medicine; Visit Provider Urology
DX: N40.1 Benign prostatic hyperplasia with lower urinary tract symptoms (principal); R39.11 Hesitancy of micturition; Z12.5 Encounter for screening for malignant neoplasm of prostate
CPT/HCPCS: 99213

== ENCOUNTER → 2025-06-21 13:07 | Outpatient (BNVA) | payer MEDICARE, SELFPAY | PROVIDERS: PCP Family Medicine; Visit Provider Urology | DX: N40.1 Benign prostatic hyperplasia with lower urinary tract symptoms (principal); R39.11 Hesitancy of micturition; Z12.5 Encounter for screening for malignant neoplasm of prostate | CPT/HCPCS: 99212 ==

== ENCOUNTER 2025-09-19 11:22 | Outpatient (REF) | payer MEDICARE, SELFPAY ==
[2025-09-19 14:23] LABS: Appearance Urine Clear; Glucose Urine UA Negative (Negative); PH 7.5 (5.0-9.0); Specific Gravity - Urine 1.025 (1.005-1.025)
[2025-09-19 14:26] LABS: MANUAL DIFF FLAG NO
--- OUTSIDE RECORDS SUMMARY | 2025-09-19 14:33 | XMS_ITS | Encounter Summary ---
Author Organization [facility] Address [address] [place] [phone] Phone Care Team Providers Care Biometry Teacher Name Role Phone David Shell MD Primary Care Provider + Encounter Details Date Type Department Care Team (Late st Contact Info) Description 04/20/2019 Procedure Pass [facility] Endoscopy Admitting Dept Virtual Department [address] [place] [address] Social History Tobacco Use Types Packs/Day Years Used Date Smoking Tobacco: Former Smokeless Tobacco: Never Alcohol Use Standard Drinks/Week Comments Yes 4 (1 standard drink = 0.6 oz pur e alcohol) Sex and Gender Information Value Date Recorded Sex Assigned at Not on file Legal Sex Male 10:02 PM EDT Gender Identity Not on file Sexual Orientation Not on file documented as of this encounter Plan of Treatment Not on file documented as of this encounter Visit Diagnoses Not on filedocumented in this encounter Care Teams Biometry Teacher Relationship Specialty Start Date End Date David Shell MD [address] [place] [phone] PCP - General Internal Medicine 04/12/19 documented as of this encounter Additional Source Comments The information contained in this document represents components of the legal health record. It is not the complete legal health record.[facility]
--- OUTSIDE RECORDS SUMMARY | 2025-09-19 14:33 | XMS_ITS | Encounter Summary ---
Author Organization [facility] Address [address] [place] [address] Phone Care Team Providers Care Noc Engineer Name Role Phone David Shell MD Primary Care Provider + Encounter Details Date Type Department Care Team (Late st Contact Info) Description 07/23/2022 Procedure Pass [facility]oscopy Admitting Dept Virtual Department [address] [place] [address] Social History Tobacco Use Types Packs/Day Years [...] on filedocumented in this encounter Care Teams Noc Engineer Relationship Specialty Start Date End Date David Shell MD [address] [place] [phone] PCP - General Internal Medicine 04/12/19 documented as of this encounter Additional Source Comments The information contained in this document represents components of the legal health record. It is not the complete legal health record.[facility]
--- OUTSIDE RECORDS SUMMARY | 2025-09-19 14:33 | XMS_ITS | Clinical Summary ---
Author Organization [facility] Address [address] [place] [phone] Phone Care Team Providers Care Audit Machine Operator Name Role Phone David Shell MD Primary [...] DEPRESSION SCREENING 1962 SMOKING Hx and SMOKELESS TOBACCO SCREENING 1963 HEPATITIS C SCREENING 1968 COLOGUARD 1995 COLONOSCOPY 1995 COLORECTAL CANCER SCREENING 1995 FIT TEST 1995 FOBT 1995 SIGMOIDOSCOPY 1995 VIRTUAL COLONOSCOPY 1995 PNEUMOCOCCAL VACCINES (50+ years) (2 of 2 - PCV) 09/18/2020 09/18/2019 ZOSTER VACCINES (2 of 2) 11/02/2020 09/07/2020 RSV VACCINE (1 - 1-dose 75+ series) 2025 INFLUENZA VACCINE (#1) 2025 9, 09/07/2019, 10/11/2018 COVID-19 VACCINE (2 - 2024-2 6 season) 2025 10/13/2021 HEPATITIS A VACCINES Aged Out No long [...] topic Medical Devices Not on file Insurance [facility] MEDICARE REPLACEMENT MEDICARE REPLACEMENT MEDICARE REPLACEMENT MEDICARE REPLACEMENT MEDICARE REPLACEMENT [facility] MEDICARE REPLACEMENT [place] [id number] [place] [id number] Care Teams Audit Machine Operator Relationship Specialty Start Date End Date David Shell MD [address] [place] [phone] PCP - General Internal Medicine 04/12/19 Additional Source Comments The information contained in this document represents components of the legal health record. It is not the complete legal health record.[facility]
[2025-09-19 14:40] LABS: Microalbum/Creatinine Ratio Ur 4.8 ug/mg cr (<30)
[2025-09-19 14:45] LABS: Hematocrit 43.7 % (42.0-52.0); Hemoglobin 14.9 g/dl (14.0-18.0); Imm Gran Abs Auto 0.01 X10*3/uL (0.00-0.03); Imm Gran Pct Auto 0.2 % (0.0-0.4); Lymphocytes Absolute Auto 1.4 X10*3/uL (1.2-4.9); Mean Corpuscular HGB Conc 34.1 g/dl (31.0-36.0); Mean Corpuscular Hemoglobin 34.4 pg (27.0-33.0); Mean Corpuscular Volume 100.9 fL (80.0-98.0); NRBC Abs Auto 0.000 X10*3/uL (0.0-0.012); NRBC Pct Auto 0.0 /100WBC (0.0-0.2); Platelet Count 207 X10*3/uL (160-400); Red Blood Count 4.33 X10*6/uL (4.60-5.80); White Blood Count 4.9 X10*3/uL (4.8-10.8)
[2025-09-19 15:09] LABS: Alanine Aminotransferase 19 U/L (0-40); Albumin Level 4.2 g/dL (3.5-5.0); Alkaline Phosphatase 50 U/L (39-117); Anion Gap 9 (12-20); Aspartate Amino Transferase 24 U/L (5-37); Blood Urea Nitrogen 19 mg/dL (9-16); Calcium 9.1 mg/dL (8.4-10.2); Carbon Dioxide 27 mmol/L (22-29); Chloride 109 mmol/L (96-108); Cholesterol 188 mg/dL (<200); Estimated Glomerular Filt Rate > 60; HDL Cholesterol 60 mg/dL (>40); PSA,Total (Free>4and<10) 1.85 ng/mL (0.00-4.00); Potassium 4.4 mmol/L (3.3-5.1); Sodium 141 mmol/L (135-145); Total Protein 6.5 g/dL (6.5-8.0); Triglycerides 72 mg/dL (<150)
== END 2025-09-19 11:23 | disposition home or self-care (01) ==
LOC: HO.WFDLDS 11:22
PROVIDERS: Urology; Visit Provider Family Medicine
DX: Z00.00 Encounter for general adult medical examination without abnormal findings (principal); Z12.5 Encounter for screening for malignant neoplasm of prostate; I10 Essential (primary) hypertension; I48.20 Chronic atrial fibrillation, unspecified
CPT/HCPCS: 36415; 80053; 80061; 81003; 82043; 82570; 84153; 84443; 85025

== ENCOUNTER 2025-09-25 11:59 | Outpatient (AMB) | payer MEDICARE, SELFPAY ==
--- NOTE | 2025-09-25 12:17 | A.OFFPC_ITS ---
Vital Signs 09/25/25 12:20 Height 5 ft 7 in Weight 153 lb 8 oz BMI 24.0 BP 102/68 Blood Pressure Location Rt brachial Position Sitting Respiration 14 Pulse 72 Pulse Source Pulse Oximeter Temp 97.7 F Temp Source Temporal Artery Scan Pulse Oximetry (%) 98 Oxygen Delivery Method Room Air Intake Visit Reasons: Annual PE - see comments Intake Note: Ezra presents in the office today for his annual physical. Allergies No Known Allergies Allergy (Verified 09/25/25 12:17) Medication List - Last Reconciled 09/25/25 by Bjorn Arauz MD apixaban (Eliquis) 5 mg PO BID calcium carb,gluc-mag gluc,ox 500 mg calcium- 250 mg (Calcium Magnesium) tabs PO cholecalciferol (vitamin D3) (Vitamin D3) 25 mcg PO DAILY chromium picolinate 200 mcg PO DAILY diclofenac sodium 1% (Voltaren Arthritis Pain) 4 grams topical QID PRN 30 days lactobacillus combination no.4 (Probiotic) 3,000 mmu cells PO DAILY multivitamin 1 tab PO DAILY niacinamide 500 mg PO BID omega-3 fatty acids 500 mg PO DAILY omeprazole 20 mg PO DAILY@0630 90 days saw palmetto 160 mg PO BID tamsulosin (Flomax) 0.4 mg PO BID Tobacco use date assessed: 09/25/25 Fall risk assessment: 1 Fall in past year Last assessed Fall Risk: 09/25/25 Dental Screening Dental Screen Date: 09/25/25 Did you have a dental visit in the last 12 months?: Yes Did you have a dental problem in the last 6 months where you did not have access to dental care?: No Was dental information given to patient?: Patient has dentist HPI Annual PE - see comments HPI Details 75 y/o male presents for a CPE with f/u labs and health maint. Labs drawn 09/19/25. Reviewed labs with pt. Triglycerides 72. TC 188. LDL 114. HDL 60. PSA 1.77. Abd. CT shows: * Atherosclerosis of the abdominal aorta without aneurysm. * Diverticulosis of the descending and sigmoid colon without diverticulitis. * Prostate gland is mildly enlarged and urinary bladder has a diffusely thickened wall. This could represent chronic detrusor muscle hypertrophy. [facility] Medical History AAA (abdominal aortic aneurysm) Lumbar radiculitis Aortic aneurysm Elevated transaminase level Surgical History History of tonsillectomy Family History (Updated 09/25/25 @ 12:20 by Digna Boykin [facility]) Mother No problems noted. Father No problems noted. Brother FH: mental illness Substance abuse Alcoholism Social History (Updated 09/25/25 @ 12:20 by Digna Boykin [facility]) Household Members: None Housing: Condominium Alcohol intake: former Patient Tobacco Use Status: Former Tobacco user Years Smoked: 10+/- e-Cigarette/Vaping Use: Never Used Second Hand Smoke Exposure: No Substance Use Type: Marijuana service: No Current occupational status: retired Current occupational exposures/hazards: No Cognitive needs: No Hearing needs: No Vision needs: No Questionnaire PHQ-9 Over the last 2 weeks, how often have you been bothered by any of the following problems? 1. Little interest or pleasure in doing things: not at all 2. Feeling down, depressed, or hopeless: not at all 3. Trouble falling or staying asleep, or sleeping too much: not at all 4. Feeling tired or having little energy: not at all 5. Poor appetite or overeating: not at all 6. Feeling bad about yourself - or that you are a failure or have let yourself or your family down: not at all 7. Trouble concentrating on things, such as reading the newspaper or watching television: not at all 8. Moving or speaking so slowly that other people could have noticed. Or the opposite - being so fidgety or restless that you have been moving around a lot more than usual: not at all 9. Thoughts that you would be better off or of hurting yourself in some way: not at all Total score: 0 Depression Screening Interpretation: Negative Depression Screening Done: Yes 23848 - PHQ-9 Billing: Yes Source: Developed by Drs. Ezra Ramos, Ellie Mayberry, Dmitriy Rivas and colleagues, with an educational isa from [employer]. Thrive Questionnaire Date Thrive assessed: 09/25/25 I am a: Patient What is your living situation today?: I have a steady place to live Within the past 12 months, did the food you bought not last and you didn't have the money to get more?: Never true Within the past 12 months, did you worry whether your food would run out before you got money to buy more?: Never true Do you have trouble paying for medicines?: No Do you have trouble getting transportation to medical appointments?: No Do you have trouble paying your heating and electricity bill?: No Do you have trouble taking care of your child, family member or friend?: No Do you have trouble with day-to-day activities such as bathing, preparing meals, shopping, managing finances, etc.?: No Are you currently unemployed and looking for a job?: No Are you interested in more education?: No Please select the resources that you would like help with: None Currently or been in a relationship where the following occur: No concerns reported THRIVE Score: 0 AUDIT C Alcohol Use Questionnaire (AUDIT-C) 1. How often do you have a drink containing alcohol?: Monthly or less 2. How many drinks containing alcohol do you have on a typical day when you are drinking?: 1 or 2 3. How often do you have six or more drinks on one occasion?: Never Total Score: 1 CHASE-7 AMB Questionnaire CHASE-7 Date CHASE - 7 assessed: 09/25/25 Feeling nervous, anxious, or on edge: 0 = Not at all Not being able to stop or control worryin = Not at all Worrying too much about different things: 0 = Not at all Trouble relaxin = Not at all Being so restless that it is hard to sit still: 0 = Not at all Becoming easily annoyed or irritable: 0 = Not at all Feeling afraid as if something awful might happen: 0 = Not at all Total CHASE-7 score (0-4 normal; 5-9 mild; 10-14 moderate; 15-21 severe): 0 Source: Developed by Drs. Ezra Ramos, Ellie Mayberry, Dmitriy Rivas and colleagues, with an educational isa from [employer]. CHASE-7 Assessment Billing CHASE-7 Assessment Tool: CHASE-7 Assessment 09246 Review of Systems Const Denies chills, Denies fatigue, Denies fever(s), Denies headache(s) and Denies weakness Eyes Denies change in vision ENT Denies dizziness, Denies headache(s), Denies hearing loss, Denies nasal congestion, Denies sinus pain, Denies sinus pressure and Denies sore throat Card Denies chest pain, Denies lightheadedness, Denies dyspnea and Denies other (palpitations) Resp Denies cough, Denies dyspnea and Denies wheezing GI Denies abdominal pain, Denies melena, Denies hematochezia, Denies change in bowel habits, Denies dyspepsia and Denies nausea Denies hematuria and Denies dysuria Musc Denies abnormal gait, Denies myalgias, Denies arthralgias, Denies numbness and Denies tingling Skin/Breast Denies rash, Denies unusual bruising and Denies wounds Neuro Denies abnormal gait, Denies dizziness, Denies headache(s), Denies memory loss, Denies numbness, Denies Sensory deficit (Neuro), Denies tingling and Denies weakness Psych Denies anxiety, Denies depression and Denies memory loss Endo Denies cold intolerance, Denies fatigue, Denies heat intolerance, Denies polydipsia and Denies polyuria Chidi/Lymph Denies easy bleeding and Denies easy bruising Aller/Immun Denies wheezing Physical exam (Primary Care) Vital Signs: Last Vital Signs Temp 97.7 F 09/25/25 12:20 Pulse 72 09/25/25 12:20 Resp 14 09/25/25 12:20 BP 102/68 09/25/25 12:20 Pulse Ox 98 09/25/25 12:20 Oxygen Delivery Method Room Air 09/25/25 12:20 BMI result Body Mass Index 24.0 Tobacco/Smoking Status: Tobacco use Status Tobacco use date assessed 09/25/25 09/25/25 12:23 Patient Tobacco Use Status Former Tobacco user 09/25/25 12:23 e-Cigarette/Vaping Use Never Used 09/25/25 12:23 PHQ-9: PHQ-9 Score PHQ-9: Total score 0 09/25/25 12:23 Depression Screening Interpretation: Negative Thrive Assessment: Date of Thrive Assessment Date Thrive assessed 09/25/25 09/25/25 12:23 Currently or been in a relationship where the following occur: No concerns reported Const General: no acute distress, well developed, alert and awake Nutritional Appearance: well nourished Orientation/consciousness: patient oriented x3 HENMT Head: Yes normocephalic and Yes atraumatic Ears: hearing grossly normal bilaterally and TM's normal bilaterally General nose exam: Normal external nose present and Normal nares present Mouth: Normal oral and palatal mucosa present and moist mucous membranes Teeth and gingiva: dentition normal Throat: Yes posterior oropharynx normal Eyes General: appearance normal, both eyes and all related structures Pupils: Equal, round and reactive pupils present and Pupil accommodation reflex normal EOM: EOMs intact bilaterally Neck Neck: Yes normal visual inspection, Yes no lymphadenopathy and Yes trachea midline Thyroid: Thyroid normal Carotids: no bruits Lymphatic: no lymphadenopathy noted Chest Chest palpation & inspection: normal inspection of the chest Resp Effort & Inspection: normal respiratory effort Auscultation: clear to auscultation bilaterally Cardio Rate: regular rate Rhythm: abnormal rhythm irregularly irregular Heart sounds: S1 normal heart sound present, S2 normal heart sound present, no gallops, no murmurs and no rubs Bruits: no abdominal aortic bruits and no carotid bruits GI Palpation (GI): No Abdominal aortic bruit present, Soft to palpation, nontender, No hepatosplenomegaly present and No Rebound tenderness present Auscultation: normal bowel sounds General: Yes no CVA tenderness Back/Spine/Pelvis Back: no CVA tenderness Cervical Spine: cervical ROM normal and No Cervical spine tenderness Thoracic/Lumbar Spine: thoraco-lumbar ROM normal, No pain with thoraco-lumbar RO M, No thoracic spinal tenderness and No lumbar spinal tenderness Skin Lesions: no lesions Rashes: no rashes Trauma: no lacerations or abrasions Wounds: no wounds Nails: normal Neuro General: patient oriented x3 Cranial nerves: Yes Equal, round and reactive pupils present Cognition (Neuro): normal cognition Gait exam (Neuro): Normal gait present Motor exam (neuro): 5/5 motor strength present throughout Sensory Exam: No Sensory deficit (Neuro) Deep tendon reflexes (DTR's): Right patellar reflex intensity grade: 2+ and Left patellar reflex intensity grade: 2+ Extrem General: Yes normal to inspection and No edema Psych Appearance: grossly normal Affect: normal affect Attitude: cooperative Thought process: Normal thought process present Coding Level of Care Code Est Pt Level 3 (69257) Est Pt Prev Care >65y(35619) Diagnoses Adult general medical exam Z00.00 Atherosclerosis of abdominal aorta I70.0 Elevated LDL cholesterol level E78.00 Atrial fibrillation I48.91 Atrial fibrillation type: unspecified Screening for colon cancer Z12.11 Screening for prostate cancer Z12.5 Additional Codes CHASE-7 Assessment Billing - CHASE-7 Assessment Tool: CHASE-7 Assessment 60498 ([id number]) PHQ-9 - 90597 - PHQ-9 Billing: Yes ([id number]) Assessment & Plan Assessment & Plan (1) Adult general medical exam: Code(s): Z00.00 - Encounter for general adult medical examination without abnormal findings Category: Medical Plan: 75-year-old male presents for complete physical exam Encouraged healthy diet with lifestyle and plenty of exercise (2) Atherosclerosis of abdominal aorta: Code(s): I70.0 - Atherosclerosis of aorta Category: Medical Plan: Elevated LDL cholesterol and CT abdomen showed atherosclerosis of aorta Start atorvastatin 20 mg daily Will recheck lipids at next blood draw (3) Elevated LDL cholesterol level: Code(s): E78.00 - Pure hypercholesterolemia, unspecified Category: Medical Plan: As above (4) Atrial fibrillation: Code(s): I48.91 - Unspecified atrial fibrillation Category: Medical Qualifiers: Atrial fibrillation type: unspecified Qualified Code(s): I48.91 - Unspecified atrial fibrillation Plan: Stable Patient does notice some shortness of breath when he is walking up hills. No chest pain. No shortness of breath with walking on level ground Focused more on consistency of exercise rather than intensity (5) Screening for colon cancer: Code(s): Z12.11 - Encounter for screening for malignant neoplasm of colon Category: Medical Plan: Cologuard the end of last year was negative Up-to-date and will repeat in about 2 more years (6) Screening for prostate cancer: Code(s): Z12.5 - Encounter for screening for malignant neoplasm of prostate Category: Medical Plan: PSA was within normal range Will continue annual screening
[2025-09-25 12:20] VITALS: BP 102/68; PULSE 72; RESP 14; TEMP 36.5; O2SAT 98; BMI 24.0
--- OUTSIDE RECORDS SUMMARY | 2025-09-25 15:27 | XMS_ITS | Encounter Summary ---
Author Organization [facility] Address [address] [place] [phone] Phone Care Team Providers Care Beef Cattle Farm Manager Name Role Phone David Shell MD Primary Care Provider + Encounter Details Date Type Department Care Team (Late st Contact Info) Description 07/23/2022 Procedure Pass [facility] Admitting Dept Virtual Department [address] [place] [address] Social History Tobacco Use Types Packs/Day Years [...] on filedocumented in this encounter Care Teams Beef Cattle Farm Manager Relationship Specialty Start Date End Date David Shell MD [address] [place] [phone] PCP - General Internal Medicine 04/12/19 documented as of this encounter Additional Source Comments The information contained in this document represents components of the legal health record. It is not the complete legal health record.[facility]
--- OUTSIDE RECORDS SUMMARY | 2025-09-25 15:27 | XMS_ITS | Encounter Summary ---
Author Organization [facility] Address [address] [place] [phone] Phone Care Team Providers Care Chaperone Name Role Phone David Shell MD Primary Care Provider + Encounter Details Date Type Department Care Team (Late st Contact Info) Description 04/20/2019 Procedure Pass [facility]oscopy Admitting Dept Virtual Department [address] [place] [address] Social History Tobacco Use Types Packs/Day Years [...] on filedocumented in this encounter Care Teams Chaperone Relationship Specialty Start Date End Date David Shell MD [address] [place] [phone] PCP - General Internal Medicine 04/12/19 documented as of this encounter Additional Source Comments The information contained in this document represents components of the legal health record. It is not the complete legal health record.[facility]
--- OUTSIDE RECORDS SUMMARY | 2025-09-25 15:27 | XMS_ITS | Clinical Summary ---
Author Organization [facility] Address [address] [place] [phone] Phone Care Team Providers Care Wrapper Caser Name Role Phone David Shell MD Primary [...] topic Medical Devices Not on file Insurance [facility] MEDICARE REPLACEMENT MEDICARE REPLACEMENT MEDICARE REPLACEMENT MEDICARE REPLACEMENT MEDICARE REPLACEMENT [facility] MEDICARE REPLACEMENT [place] [id number] [place] [id number] Care Teams Wrapper Caser Relationship Specialty Start Date End Date David Shell MD [address] [facility] 1 [place] [phone] PCP - General Internal Medicine 04/12/19 Additional Source Comments The information contained in this document represents components of the legal health record. It is not the complete legal health record.[facility]
== END 2025-09-25 12:50 | disposition home or self-care (01) ==
LOC: HO.HMCFM 12:00
PROVIDERS: PCP Family Medicine; Visit Provider Family Medicine
DX: Z00.00 Encounter for general adult medical examination without abnormal findings (principal); I70.0 Atherosclerosis of aorta; E78.00 Pure hypercholesterolemia, unspecified; I48.91 Unspecified atrial fibrillation; Z12.11 Encounter for screening for malignant neoplasm of colon; Z12.5 Encounter for screening for malignant neoplasm of prostate

== ENCOUNTER → 2025-09-25 11:59 | Outpatient (BNVA) | payer MEDICARE, SELFPAY | PROVIDERS: PCP Family Medicine; Visit Provider Family Medicine | DX: Z00.00 Encounter for general adult medical examination without abnormal findings (principal); I70.0 Atherosclerosis of aorta; Z13.31 Encounter for screening for depression; Z13.39 Encounter for screening examination for other mental health and behavioral disorders | CPT/HCPCS: 96127; 99212; 99397 ==

== ENCOUNTER 2025-10-14 12:43 | Outpatient (AMB) | payer MEDICARE, SELFPAY ==
--- NOTE | 2025-10-14 12:46 | A.OFFVIS_ITS ---
Vital Signs 10/14/25 12:50 Height 5 ft 7 in Weight 156 lb 15.506 oz BMI 24.6 BP 100/70 Blood Pressure Location Lt brachial Position Sitting Pulse 58 Pulse Source Monitor Intake Visit Reasons: 1 yr s/p echo Criminal Profiler Required: No Accompanied by: Self / Same As Patient Allergies No Known Allergies Allergy (Verified 09/25/25 12:17) Medication List - Last Reconciled 10/14/25 by Burt Carreon MD apixaban (Eliquis) 5 mg PO BID atorvastatin (Lipitor) 20 mg PO BEDTIME 90 days calcium carb,gluc-mag gluc,ox 500 mg calcium- 250 mg (Calcium Magnesium) tabs PO cholecalciferol (vitamin D3) (Vitamin D3) 25 mcg PO DAILY chromium picolinate 200 mcg PO DAILY diclofenac sodium 1% (Voltaren Arthritis Pain) 4 grams topical QID PRN 30 days lactobacillus combination no.4 (Probiotic) 3,000 mmu cells PO DAILY multivitamin 1 tab PO DAILY niacinamide 500 mg PO BID olopatadine 0.7% 1 drp ophthalmic (eye) QAM 30 days omega-3 fatty acids 500 mg PO DAILY omeprazole 20 mg PO DAILY@0630 90 days saw palmetto 160 mg PO BID tamsulosin (Flomax) 0.4 mg PO BID HPI Comments Details: 75-year-old gentleman who was seen in the hospital with vasovagal syncope and new diagnosis of atrial fibrillation. 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 He was noticed to have AFib with slow ventricular response. Inpatient workup including echocardiography did not reveal any significant issues. He was asymptomatic from atrial fibrillation but due to his age and having an abdominal aortic aneurysm we decided to start him on anticoagu lation. He has been on Eliquis since then. No bleeding issues with that. He had a Holter monitor which showed slow heart rates no significant pauses or tachycardia. He also had ankle-brachial index assessment which did not show any resting abnormality. His ABIs were high pointing towards atherosclerotic calcification. On follow-up he has been doing well. No syncope. No chest pain shortness of breath. 10/22/2024: He is here for follow-up. Continues to take Eliquis without any problem. No chest pain or palpitations. He gets short of breath when he is going uphill especially when he is playing golf. He is exercising regularly and does get some dyspnea with exercise especially when he does cardio. 10/14/2025. He is here for follow-up. He has been doing well. Denying any significant symptoms. His echocardiography has shown low normal ejection fraction. Normal right ventricular size and function. Clinically he continues to be stable. [facility] Medical History AAA (abdominal aortic aneurysm) Lumbar radiculitis Aortic aneurysm Elevated transaminase level Surgical History History of tonsillectomy Family History (Updated 09/25/25 @ 12:20 by Digna Boykin CMA) Mother No problems noted. Father No problems noted. Brother FH: mental illness Substance abuse Alcoholism Social History (Updated 09/25/25 @ 12:20 by Digna Boykin CMA) Household Members: None [facility] Alcohol intake: former Patient Tobacco Use Status: Former Tobacco user Years Smoked: 10+/- e-Cigarette/Vaping Use: Never Used Second Hand Smoke Exposure: No Substance Use Type: Marijuana service: No Current occupational status: retired Current occupational exposures/hazards: No Cognitive needs: No Hearing needs: No Vision needs: No Review of Systems Const Denies chills, Denies fatigue, Denies fever(s), Denies frequent falls, Denies weakness, Denies weight gain and Denies weight loss ENT Denies dizziness Card Denies chest pain, Denies leg edema, Denies lightheadedness, Denies palpitations, Denies dyspnea and Denies dyspnea on exertion Resp Denies cough, Denies dyspnea and Denies dyspnea on exertion GI Denies hematochezia Musc Denies abnormal gait, Denies muscle weakness, Denies numbness, Denies radiating pain into limb and Denies tingling Neuro Denies abnormal gait, Denies dizziness, Denies frequent falls, Denies numbness, Denies tingling and Denies weakness Endo Denies fatigue and Denies palpitations Physical Exam GENERAL APPEARANCE: in no acute distress, pleasant. NECK: no carotid bruit, no jugular venous distention. SKIN: no suspicious lesions, warm and dry. HEART: no murmurs, irregular rate and rhythm. Bradycardic. LUNGS: clear to auscultation bilaterally. ABDOMEN: soft, nontender. EXTREMITIES: no edema. PERIPHERAL PULSES: equal. NEUROLOGIC: No gross deficits, AAO X 3 Assessment & Plan Assessment & Plan (1) Permanent atrial fibrillation: Code(s): I48.21 - Permanent atrial fibrillation Category: Medical Plan Pleasant 75 year gentleman who is here for follow-up. He has permanent atrial fibrillation. 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 Overall he has atrial fibrillation with slow ventricular response. He has no symptoms from atrial fibrillation currently. No dizziness or lightheadedness or any syncopal episode in the past. Continue Eliquis as before. Repeat echocardiography has shown low normal ejection fraction but no evidence of mitral or tricuspid regurgitation. Normal right ventricular size and function. So far I think we continue the same strategy. He will see us back in 1 year. Thank you for allowing me to participate in the care of your patient. Please feel free to contact me if you have any questions. Coding Level of Care Code Est Pt Level 4 (92963) Diagnoses Permanent atrial fibrillation I48.21
[2025-10-14 12:50] VITALS: BP 100/70; PULSE 58; BMI 24.6
== END 2025-10-14 13:05 | disposition home or self-care (01) ==
PROVIDERS: PCP Family Medicine; Visit Provider Internal Medicine Cardiovascular Disease
DX: I48.21 Permanent atrial fibrillation (principal)
CPT/HCPCS: 99214

== ENCOUNTER → 2025-10-14 12:43 | Outpatient (BNVA) | payer MEDICARE, SELFPAY | PROVIDERS: PCP Family Medicine; Visit Provider Internal Medicine Cardiovascular Disease | DX: I48.21 Permanent atrial fibrillation (principal) | CPT/HCPCS: 99212 ==

== ENCOUNTER 2025-11-26 13:08 | Outpatient (REF) | payer MEDICARE, SELFPAY ==
[2025-11-26 15:27] LABS: MANUAL DIFF FLAG NO
[2025-11-26 15:45] LABS: Hematocrit 43.6 % (42.0-52.0); Hemoglobin 14.6 g/dl (14.0-18.0); Imm Gran Abs Auto 0.01 X10*3/uL (0.00-0.03); Imm Gran Pct Auto 0.2 % (0.0-0.4); Lymphocytes Absolute Auto 1.3 X10*3/uL (1.2-4.9); Mean Corpuscular HGB Conc 33.5 g/dl (31.0-36.0); Mean Corpuscular Hemoglobin 34.3 pg (27.0-33.0); Mean Corpuscular Volume 102.3 fL (80.0-98.0); NRBC Abs Auto 0.000 X10*3/uL (0.0-0.012); NRBC Pct Auto 0.0 /100WBC (0.0-0.2); Platelet Count 202 X10*3/uL (160-400); Red Blood Count 4.26 X10*6/uL (4.60-5.80); White Blood Count 5.7 X10*3/uL (4.8-10.8)
[2025-11-26 16:07] LABS: Alanine Aminotransferase 29 U/L (0-40); Albumin Level 4.2 g/dL (3.5-5.0); Alkaline Phosphatase 63 U/L (39-117); Anion Gap 9 (12-20); Aspartate Amino Transferase 25 U/L (5-37); Blood Urea Nitrogen 22 mg/dL (9-16); Calcium 9.5 mg/dL (8.4-10.2); Carbon Dioxide 26 mmol/L (22-29); Chloride 108 mmol/L (96-108); Cholesterol 118 mg/dL (<200); Estimated Glomerular Filt Rate > 60; HDL Cholesterol 61 mg/dL (>40); Potassium 4.4 mmol/L (3.3-5.1); Sodium 139 mmol/L (135-145); Total Protein 6.4 g/dL (6.5-8.0); Triglycerides 56 mg/dL (<150)
[2025-11-26 16:14] LABS: Microalbum/Creatinine Ratio Ur 6.0 ug/mg cr (<30)
--- OUTSIDE RECORDS SUMMARY | 2025-11-26 17:02 | XMS_ITS | Encounter Summary ---
Author Organization [facility] Address [address] [place] [phone] Phone Care Team Providers Care Surgical Services Coordinator Name Role Phone David Shell MD Primary Care Provider + Encounter Details Date Type Department Care Team (Late st Contact Info) Description 07/23/2022 Procedure Pass [facility] Endoscopy Admitting Dept Virtual Department [address] [place] [address] Social History Tobacco Use Types Packs/Day Years [...] on filedocumented in this encounter Care Teams Surgical Services Coordinator Relationship Specialty Start Date End Date David Shell MD [address] [place] [phone] PCP - General Internal Medicine 04/12/19 documented as of this encounter Additional Source Comments The information contained in this document represents components of the legal health record. It is not the complete legal health record.[facility]
--- OUTSIDE RECORDS SUMMARY | 2025-11-26 17:02 | XMS_ITS | Encounter Summary ---
Author Organization [facility] Address [address] [place] [phone] Phone Care Team Providers Care Regional Geodetic Advisor Name Role Phone David Shell MD Primary Care Provider + Encounter Details Date Type Department Care Team (Late st Contact Info) Description 04/20/2019 Procedure Pass [facility] Endoscopy Admitting Dept Virtual Department [address] [place] [address] Social History Tobacco Use Types Packs/Day Years [...] on filedocumented in this encounter Care Teams Regional Geodetic Advisor Relationship Specialty Start Date End Date David Shell MD [address] [place] [phone] PCP - General Internal Medicine 04/12/19 documented as of this encounter Additional Source Comments The information contained in this document represents components of the legal health record. It is not the complete legal health record.[facility]
--- OUTSIDE RECORDS SUMMARY | 2025-11-26 17:02 | XMS_ITS | Clinical Summary ---
Author Organization [facility] Address [address] [place] [phone] Phone Care Team Providers Care Heat Treat Puller Name Role Phone David Shell MD Primary [...] topic Medical Devices Not on file Insurance [facility] MEDICARE REPLACEMENT MEDICARE REPLACEMENT MEDICARE REPLACEMENT MEDICARE REPLACEMENT MEDICARE REPLACEMENT [facility] MEDICARE REPLACEMENT [place] [id number] [place] [id number] Care Teams Heat Treat Puller Relationship Specialty Start Date End Date David Shell MD [address] [facility] 1 [place] [phone] PCP - General Internal Medicine 04/12/19 Additional Source Comments The information contained in this document represents components of the legal health record. It is not the complete legal health record.[facility]
== END 2025-11-26 13:09 | disposition home or self-care (01) ==
LOC: HO.WFDLDS 13:08
PROVIDERS: Visit Provider Family Medicine
DX: Z00.00 Encounter for general adult medical examination without abnormal findings (principal); E78.00 Pure hypercholesterolemia, unspecified; I10 Essential (primary) hypertension
CPT/HCPCS: 36415; 80053; 80061; 82043; 82570; 84443; 85025